=== PATIENT | male | born 1965 | race Caucasian/White ===

== ENCOUNTER 2019-09-16 18:32 | Emergency (ER) | payer MEDICAID, SELFPAY ==
[2019-09-16 18:35] VITALS: BP 165/87; PULSE 109; PULSE 110; RESP 20; RESP 22; TEMP 36.8; O2SAT 91; O2SAT 92; BMI 25.2
--- NOTE | 2019-09-16 18:54 | ED.VISSUMM ---
- ER Visit Summary Date of Service: 09/16/19 Chief Complaint: Cough and shortness of breath History of Present Illness: The patient is a [address] Parkinson's disease prior TIA and hypertension. Patient states his had a recent URI. She was treated with steroids and inhalers. He is now developed the same cough with yellowish to green sputum. No hemoptysis. His chest discomfort is with coughing only. He is never had a DVT or PE. No recent travel, surgery or immobilization. No leg pain or swelling. States that he often gets bronchitis almost annually. Physical Examination: Middle-aged male vital signs are stable is afebrile with pulse ox 90% room air no hypoxia. He is actively wheezing. H EENT exam unremarkable. Smell of tobacco. Neck nontender no lymphadenopathy. Lungs prolonged expiratory phase. Wet cough. Expiratory wheezing bilaterally. No rales or rhonchi. Heart regular rhythm rate about 105 no murmur. Chest wall nontender. Abdomen soft nontender. Normal bowel sounds no peritoneal signs. Patient moving all 4 extremities. Neurovascular intact. Calves are nontender without edema or cords. Neurologically is awake alert with no focal motor deficits. Test Results: Chest x-ray 2 views AP and lateral read by myself shows chronic changes no obvious pneumonia. Emergency Department Course and Treatment: Patient is examined history consistent with a bronchitis rule out pneumonia. Treated with albuterol DuoNeb aerosols. Prednisone p.o. Repeat exam patient is doing better. He will be started on Zithromax Z-CHRISTOPHER for possible bacterial infection. Prednisone 40 g a day for 1 week. Use inhaler. Encouraged to stop smoking. Treatment Plan: Daily for 1 week. Zithromax Z-CHRISTOPHER. Smoking sensation. Disposition: Discharge Impression: Acute bronchitis with bronchospasm Tobacco abuse This note was generated with [employer] dictation software. It may contain incorrect words, spelling, and punctuation that were not noted in review of the chart prior to signing ED Disposition - Plan for ED Patient: Referrals: Silvio Vargas MD [NON-STAFF] -
[2019-09-16 19:16] VITALS: PULSE 105; RESP 22; O2SAT 91
[2019-09-16] MEDS: Albuterol 2.5 MG/3 ML VIAL.NEB. INHALATION (19:16)
[2019-09-16] MEDS: Ipratropium/Albuterol Sulfate 3 ML AMPUL.NEB INHALATION (19:16)
[2019-09-16] MEDS: predniSONE 20 MG Tablet 80 MG PO (19:20)
--- NOTE | 2019-09-16 19:42 | RAD_ITS ---
STUDY: X-RAY CHEST REASON FOR EXAM: Male, 54 years old. Cough TECHNIQUE: PA and lateral views of the chest. COMPARISON: None. FINDINGS: There are vague infiltrates of the right upper and lower lobes. There is no demonstrated pleural abnormality. Normal size heart. Normal mediastinum and raheel. Normal visualized pulmonary arteries. Normal visualized aortic arch and descending thoracic aorta. There are diffuse degenerative changes of the visualized thoracic spine. Normal visualized ribs, clavicles, and shoulders. There is no demonstrated abnormality of the visualized soft tissue structures of the upper abdomen. RAD/Chest PA and Lateral IMPRESSION: Vague infiltrates of the right upper and lower lobes. Degenerative changes of the thoracic spine. Electronically Signed: Joss Hernandez MD at 20:03 EST , Service support ,
--- NOTE | 2019-09-16 19:48 | CPS ---
x1 Albuterol given to pt. in ER as well
[2019-09-16 19:58] VITALS: BP 136/82; PULSE 102; RESP 18; O2SAT 93
[2019-09-16 20:05] VITALS: PULSE 106; RESP 16; O2SAT 92
--- NOTE | 2019-09-16 20:06 | ED.DEP ---
ED Disposition - Plan for ED Patient: Instructions: BRONCHITIS, Antiobiotic Treatment (Adult) Prescriptions: Prednisone [Deltasone] 40 mg PO DAILY 7 Days tab Prescription Printed Albuterol Sulfate [Proventil Hfa] 6.7 gm IH Q2H PRN PRN #1 [email or web address] PRN Reason: Wheezing Prescription Printed Azithromycin [Zithromax] 250 mg PO DAILY 4 Days #4 tab Prescription Printed Referrals: Joao Perry MD [Primary Care Provider] - 3-5 Days if not improving Additional Instructions: Inhaler as needed. Prednisone daily for 7 days. Zithromax daily 1 pill/day for 4 more days. Stop smoking. Follow-up if not improving. Return if worse.
[2019-09-16] MEDS: Azithromycin 250 MG Tablet 500 MG PO (20:28)
== END 2019-09-16 20:30 | disposition home or self-care (01) ==
PROVIDERS: Emergency Provider Emergency Medicine; Family Provider Family Medicine; PCP Family Medicine
DX: J20.9 Acute bronchitis, unspecified (principal); G20 Parkinson's disease; I10 Essential (primary) hypertension; Z86.73 Personal history of transient ischemic attack (TIA), and cerebral infarction without residual deficits; Z72.0 Tobacco use; Z79.82 Long term (current) use of aspirin; Z79.52 Long term (current) use of systemic steroids; Z79.899 Other long term (current) drug therapy
CPT/HCPCS: 71046; 94640; 99251; 99283; G0463

== ENCOUNTER 2019-10-10 16:09 | Inpatient (IN) | payer MEDICAID, SELFPAY ==
[2019-10-10] VITALS (12 sets, daily range): BP systolic 120–148; BP diastolic 75–92; PULSE 101–120; RESP 18–34; TEMP 36.7–37.2; O2SAT 90–95; BMI 24.3; BMI 24.6
--- NOTE | 2019-10-10 16:35 | ED.DCSUM_ITS ---
History of Present Illness Chief Complaint: Shortness of Breath Informant: Patient Onset: Days Context: Gradual Onset Timing: Continuous Associated Symptoms: Chills, Cough, Fever, White sputum, Yellow sputum Chest Pain: None Narrative: Patient is a 54-year-old male with history of hypertension some Parkinson's disease presenting with fever, cough and myalgias. Patient states he was seen for similar symptom about 3 weeks ago. At that time he was put on Z-Shawn, prednisone and albuterol inhaler. He had a chest x-ray which was normal at that time. He notes he felt better for couple days and then started to worsen again. Patient states over the past 2 days he has had significantly worsening symptoms including nausea, vomiting, diarrhea, productive cough, shortness of breath and fever up to 102 degrees Fahrenheit. Patient states he is only smoked 1 cigarette over the past 4 days because he has been feeling unwell. He does report a fall couple days ago but states that is normal for him because of his Parkinson's. He denies any other complaints at this time. He denies any associated swelling of his legs. Past Medical History - Allergies and Home Meds Allergies/Adverse Reactions: Allergies SSRI Adverse Reaction (Uncoded 10/10/19 16:10) Other MAKES ME WANT TO KILL PEOPLE Primary Care Physician: Joao Perry MD [Primary Care Provider] - Past Medical History: - - Parkinson's disease, hypertension Surgical History: noncontributory Lives: Spouse/ Significant Other Smoking Status: Current every day smoker - Family History Maternal Family History: Reports: No pertinent history Paternal Family History: Reports: No pertinent history Review of Systems General: Reports: Chills, Fever, Malaise. Denies: Sweats Eyes: Denies: Visual changes - bilaterally, Blurred Vision - bilaterally ENT: Denies: Bilateral ear pain, Rhinorrhea, Sore throat Cardiovascular: Denies: Chest pain, Palpitations Respiratory: Reports: Dyspnea, Cough, Sputum. Denies: Dyspnea on exertion Gastrointestinal: Reports: Nausea, Vomiting, Diarrhea. Denies: Abdominal pain, Melena, Hematochezia Genitourinary: Denies: Dysuria, Hematuria, Frequency Musculoskeletal: Reports: Myalgias. Denies: Arthralgias, Neck pain, Back pain, Swelling, Extremity Pain Skin: Denies: Rash Neurological: Denies: Headache, Weakness, Numbness Physical Exam Vital Signs/Narrative: Vital Signs Temp Pulse Resp BP Pulse Ox 10/10/19 16:11 98.2 F 113 H 20 H 133/77 H 90 Inital Vital Signs reviewed: Yes General: Well nourished, Well developed Head: Normocephalic, Atraumatic Eyes: Perrl, EOMI ENT: TM's clear. Negative for: Rhinorrhea, Purulent Discharge, Sinus tenderness Neck: Supple, Nontender, No lymphadenopathy, No JVD Cardiovascular: Regular rhythm, No murmurs, Tachycardia Respiratory: Wheezing. Negative for: Diminished, Decreased Air Movement, Retractions Abdomen: Soft, Nontender, Nondistended, Normal bowel sounds Back: Nontender, Normal Inspection Extremities: Nontender, No edema Skin: Normal color, No rash, - - Healing ecchymosis of the right upper back/lower neck. Patient states this is from a recent fall Neurological: Alert, Oriented x3, Cranial nerves II-XII grossly intact, Normal Strength, Normal Sensation Psychological: Normal affect Diagnostic/Tx/Re-eval Chest X-Ray - ED: 2 View, Read by ED Physician, Read by Radiologist, Right Infiltrate Clinical Impression(s) from Imaging Studies Chest X-Ray 10/10/19 17:09 IMPRESSION: 1. Developing right lower lobe pneumonia. Electronically Signed: Tesfaye Hsu MD ([place]) at 17:22 EST , Service support , Laboratory Data 10/10/19 10/10/19 16:45 16:45 WBC 9.4 RBC 4.61 Hgb 15.3 Hct 42.7 MCV 92.6 MCH 33.2 H MCHC 35.8 RDW Std Deviation 42.5 RDW Coeff of Michelet 12.5 Plt Count 146 L MPV 9.0 Immature Gran % (Auto) 0.300 Neut % (Auto) 62.3 Lymph % (Auto) 20.1 Dauphin % (Auto) 14.8 H Eos % (Auto) 2.1 Baso % (Auto) 0.4 Absolute Neuts (auto) 5.9 Absolute Lymphs (auto) 1.90 Nucleated RBC % 0 Sodium 124 L Potassium 3.6 Chloride 88 L Carbon Dioxide 24.0 Anion Gap 12 BUN 6 L Creatinine 0.60 L Estim Creat Clear Calc 129.96 Est GFR (MDRD) Af Amer 182 Est GFR (MDRD) Non-Af 151 BUN/Creatinine Ratio 10.0 Glucose 95 Calcium 9.0 Total Bilirubin 1.20 H AST 46 H ALT 45 Alkaline Phosphatase 117 Total Protein 7.9 Albumin 3.4 Globulin 4.5 H Albumin/Globulin Ratio 0.8 L Lipase 76 Treatments: Albuterol, Atrovent, Ceftriazone Azithromycin Fluid Bolus: NS 1000ml - Medical Decision Making Evaluate for fever, cough and shortness of breath. He appears that he does not feel well but he looks nontoxic. Patient is tachycardic and tachypneic on arrival. Chest x-ray shows a right lower lobe infiltrate. This fits his clinical picture. In addition his BMP shows hyponatremia and hypochloremia. I suspect this is more than likely from dehydration as he states he is unable to eat or drink anything last 2 days and had vomiting. Differential does also include Legionella pneumonia. Patient is not requiring any supplemental oxygen however. He is given breathing treatment in the emergency room. Patient does meet criteria for sepsis with a source of infection as well as tachycardia and tachypnea. Lactate and blood cultures are added on. He will be admitted for IV fluids and antibiotics. He is also given Solu-Medrol in the ER for his wheezing. First dose of Rocephin and azithromycin are given in the emergency room. Discussed with Dr. Green, medicine on-call who is agreeable with this plan. Patient is stable for the general medical floor at time of disposition. He is agreeable with this plan. ED Disposition - Plan for ED Patient: Disposition: Acute Care Hospital [facility] Diagnosis: Right lower lobe pneumonia, Sepsis, Hyponatremia, Hypochloremia Referrals: Joao Perry MD [Primary Care Provider] -
[2019-10-10] MEDS: 0.9% Normal Saline 1,000 ML 1000 ML IV (16:53)
[2019-10-10 16:56] LABS: Absolute Neutrophil Count 5.9 X10^3/uL (2.0-7.7); Basophil# 0.04 X10^3/uL; Basophil% 0.4 % (0-1); Eosinophils% 2.1 % (0-5); Hematocrit 42.7 % (40-54); Hemoglobin 15.3 g/dL (13.0-16.5); Lymphocyte % 20.1 % (19-41); Mean Corp Hgb Conc 35.8 g/dL (32-36); Mean Corpuscular Hgb 33.2 pg (27.0-32.0); Mean Corpuscular Volume 92.6 fL (80-94); Monocyte% 14.8 % (0-10); NRBC Flagged by Analyzer 0 % (0-5); Neutrophil # 5.86 X10^3/uL (2.7-7.7); Neutrophil % 62.3 % (47-70); Platelet Count 146 K/mm3 (150-450); RBC Distribution Width CV 12.5 % (11.6-14.6); RBC Distribution Width SD 42.5 fl (35.1-43.9); Red Blood Count 4.61 M/mm3 (4.6-6.2); White Blood Count 9.4 K/mm3 (4.4-11.0)
[2019-10-10] MEDS: Albuterol 2.5 MG/3 ML VIAL.NEB. INHALATION (16:57)
[2019-10-10] MEDS: Ipratropium/Albuterol Sulfate 3 ML AMPUL.NEB INHALATION ×2 (16:57→22:40)
--- NOTE | 2019-10-10 17:09 | RAD_ITS ---
STUDY: X-RAY CHEST REASON FOR EXAM: Male, 54 years old. COUGH SOB TECHNIQUE: PA and lateral views of the chest. COMPARISON: 09/16/2019 FINDINGS: Localized parenchymal opacity in the left lower lobe is new since the prior study. There is no demonstrated pleural abnormality. Normal size heart. Normal mediastinum and raheel. Normal visualized pulmonary arteries. Normal visualized aortic arch and descending thoracic aorta. There are diffuse degenerative changes of the visualized thoracic spine. Normal visualized ribs, clavicles, and shoulders. There is no demonstrated abnormality of the visualized soft tissue structures of the upper abdomen. RAD/Chest PA and Lateral IMPRESSION: 1. Developing right lower lobe pneumonia. Electronically Signed: Tesfaye Hsu MD ([place]) at 17:22 EST , Service support ,
[2019-10-10 17:12] LABS: ALB/GLOB Ratio 0.8 RATIO (0.9-2.4); AST(SGOT) 46 U/L (15-37); Alanine Aminotransfer ALT/SGPT 45 U/L (16-61); Albumin, Serum 3.4 g/dL (3.2-5.0); Alkaline Phosphatase 117 U/L (45-117); Anion Gap 12 (5-15); BUN 6 mg/dL (7-18); Chloride 88 mmol/L (98-107); EST Glomerular Filtration Rate 151 mL/min (>60); Est Glom Filt Rate - Afr Amer 182 mL/min (>60); Estimated Creatinine Clearance 129.96 ml/min; Globulin 4.5 g/dL (2.2-4.2); Glucose 95 mg/dL (74-106); Lipase 76 U/L (73-393); Potassium 3.6 mmol/L (3.5-5.1); Protein, Total 7.9 g/dL (6.4-8.2); Sodium Level 124 mmol/L (136-145)
--- NOTE | 2019-10-10 17:49 | PCM.HP.STD ---
Problem List (1) Sepsis Status: Acute Qualifiers: Sepsis type: sepsis due to unspecified organism Sepsis acute organ dysfunction status: unspecified Qualified Code(s): A41.9 - Sepsis, unspecified organism (2) Pneumonia Status: Acute Qualifiers: Pneumonia type: due to unspecified organism Laterality: right Lung location: lower lobe of lung Qualified Code(s): J18.9 - Pneumonia, unspecified organism (3) Viral syndrome Status: Acute (4) Hyponatremia Status: Acute (5) Reactive airway disease Status: Acute Qualifiers: Asthma severity: unspecified severity Asthma persistence: unspecified Asthma complication type: with acute exacerbation Qualified Code(s): J45.901 - Unspecified asthma with (acute) exacerbation (6) Parkinsons disease Status: Chronic (7) History of TIA (transient ischemic attack) Status: Chronic (8) HTN (hypertension) Status: Chronic Qualifiers: Hypertension type: essential hypertension Qualified Code(s): I10 - Essential (primary) hypertension (9) Tobacco use Status: Chronic (10) ETOH abuse Status: Chronic History of Present Illness Date of Admission: 10/10/19 Chief Complaint: Dyspnea, cough, N/V/D The patient is a 54 y/o M w/ PMHx: EtOH Abuse, Parkinson's Disease, Hx TIA, HTN, Tobacco use, recently evated 09/16/19 in the ED w/ history of upper respiratory infection treated with steroids and inhalers with recurrent productive cough and pleuritic chest discomfort primarily only with coughing with at that time suspected acute bronchitis with bronchospasms with Z-Shawn treatment who now represents to the [facility] ED on 10/10/19 with history of initially improving after recent treatment but then had recurrent productive cough, dyspnea, wheezing x 1.5 weeks with 2-3 onset nausea, emesis, loose stools (>4/5 episodes daily) as well as poor appetite with fever up to 102 and chills. He also admitted audible wheezing. Work-up in the ED included T 98.2, heart rate 113, BP 133/77, respiratory rate 20, 90% on room air, CBC with WC 9.4, hemoglobin 15.3, platelet 146 with no evidence of left shift with increased monocytes, CMP with sodium 124, chloride 88, BUN/creatinine 6/0.60, total bilirubin 1.20, AST/ALT 46/45, lipase 76, rapid influenza negative, chest x-ray with developing right lower lobe pneumonia, blood culture x2 pending per ED physician, lactic acid requested per ED physician pending upon requested evaluation of patient. In the ED patient administered albuterol, DuoNeb, azithromycin and rocephin as well as normal saline. Past Medical History Past Medical History (Chronic Problems): Chronic Problems Parkinsons disease (Chronic) History of TIA (transient ischemic attack) (Chronic) HTN (hypertension) (Chronic) Tobacco use (Chronic) ETOH abuse (Chronic) Allergies SSRI Adverse Reaction (Uncoded 10/10/19 16:10) Other MAKES ME WANT TO KILL PEOPLE Home Medications: Ambulatory Orders Medication Instructions Recorded Carbidopa/Levodopa 50/200 [Sinemet 1 tablet PO TIDAC 11/24/16 CR 50/200] Rasagiline Mesylate [Azilect] 1 mg PO DAILY 11/24/16 Amlodipine [Norvasc] 5 mg PO DAILY #30 tablet 11/25/16 Aspirin [Aspirin, Baby] 81 mg PO DAILY@0800 #30 tab.chew 11/25/16 Albuterol Sulfate [Proventil Hfa] 6.7 gm IH Q2H PRN PRN #1 [email or web address] 09/16/19 Surgical History: - - Left lower extremity surgery status post trauma, denies hardware. Psychiatric History: No pertinent psych hx Lives: Spouse/ Significant Other Smoking Status: Current every day smoker - Patient smokes 1 pack/day cigarette tobacco since he was a teenager to age 24, quit until he was in his 30s when he resumed but recently with his illness he has smoked less. Tobacco Use: Cigarettes Alcohol: Heavy - Patient admits to at least a sixpack of beer, 12 ounces each daily usually in the evenings. Drugs: None - *Family History Maternal History Items: Hypertension Paternal History Items: Hypertension Review of Systems Constitutional: Reports: Anorexia, Chills, Fever, Malaise, Weakness, Fatigue. Denies: Weight Change HEENT: Reports: Nasal Congestion, Sinus Congestion, Sinus Drainage. Denies: Head Aches Cardiovascular: Denies: Chest Pain, Palpitations Respiratory: Reports: Cough, Pleuritic Pain, Shortness of Breath, Shortness of breath at rest, Shortness of breath upon exertion, Sputum production, Wheezing Gastrointestinal: Reports: Abdominal Pain - Cramping, dull ache., Diarrhea, Nausea, Vomiting Genitourinary: Denies: Dysuria Musculoskeletal: Reports: Joint Pain, Muscle pain. Denies: Joint Tenderness Skin: Denies: Rash, Wounds Neurological: Reports: Balance problems. Denies: Focal weakness, Numbness, Tingling Psychiatric: Denies: Anxiety, Depression, Homicidal Ideations, Suicidal Ideations Hematologic/ Lymphatic: Denies: Easy Bruising, Easy Bleeding VTE Information - Inpt Only VTE Present on Admission: No VTE Mechan Device Prophylaxis: SCD's VTE Pharm Prophylaxis ordered?: Yes Patient Problems: Active and Suspected Problems Sepsis (Acute) Pneumonia (Acute) Viral syndrome (Acute) Hyponatremia (Acute) Reactive airway disease (Acute) Subjective: Seated upright in ED bed, fatigued appearance, ill-appearing, increased work of breathing and accessory muscle usage. Objective: Physical Examination: General: awake, alert, oriented x 3 and cooperative, seated upright in the ED bed, fatigued and ill-appearing, evident respiratory distress. Skin: normal color, turgor, no icterus, cyanosis. HEENT: AT/NC, EOMI, PERRLA, dry MM, posterior OP erythema, no exudate, no carotid bruits or JVD noted. Lungs: Severely diffusely diminished, greater bilateral bases, diffuse anterior and expiratory wheezing, more diminished posteriorly, rhonchorous, increased work of breathing, accessory muscle usage, evident distress, requesting ABG. Heart: Tachycardic with regular rhythm; no gallop, rub audible. Abdomen: soft, NTTP, ND, normal BS, positive HM. Extremities: no cyanosis, clubbing, or edema. Neurological: patient awake, alert, oriented x 3; cognitive function intact; pupils equally reactive to light and accomodation; cranial nerves II-XII grossly normal, moving all 4 extremities, no focal deficits, strength severely global decrease secondary to acute presentation. Psychiatric: affect appears fatigued, ill, no acute evidence of depressive or anxiety feelings. - Physical Exam Vitals/I&O's: Vital Signs Temp Pulse Resp BP Pulse Ox 98.2 F 112 H 24 H 133/77 H 94 10/10/19 16:11 10/10/19 16:50 10/10/19 16:50 10/10/19 16:11 10/10/19 16:50 Oxygen Delivery Method Room Air Weight: 151 lb 0.266 oz Body Mass Index (BMI) 24.3 Finger Stick Blood Glucose 92 Microbiology Past 72 Hours 10/10/19 16:55 Mucosa - Nasopharyngeal Influenza Types A,B Direct FA (FELIPE) - Final Laboratory Results 10/10/19 16:45: WBC 9.4, RBC 4.61, Hgb 15.3, Hct 42.7, MCV 92.6, MCH 33.2 H, MCHC 35.8, RDW Std Deviation 42.5, RDW Coeff of Michelet 12.5, Plt Count 146 L, MPV 9.0, Immature Gran % (Auto) 0.300, Neut % (Auto) 62.3, Lymph % (Auto) 20.1, Pitkin % (Auto) 14.8 H, Eos % (Auto) 2.1, Baso % (Auto) 0.4, Absolute Neuts (auto) 5.9, Absolute Lymphs (auto) 1.90, Nucleated RBC % 0 10/10/19 16:45: Sodium 124 L, Potassium 3.6, Chloride 88 L, Carbon Dioxide 24.0, Anion Gap 12, BUN 6 L, Creatinine 0.60 L, Estim Creat Clear Calc 129.96, Est GFR (MDRD) Af Amer 182, Est GFR (MDRD) Non-Af 151, BUN/Creatinine Ratio 10.0, Glucose 95, Calcium 9.0, Total Bilirubin 1.20 H, AST 46 H, ALT 45, Alkaline Phosphatase 117, Total Protein 7.9, Albumin 3.4, Globulin 4.5 H, Albumin/Globulin Ratio 0.8 L, Lipase 76 Assessment/Plan All Active Problems Sepsis (Acute) Pneumonia (Acute) Viral syndrome (Acute) Hyponatremia (Acute) Reactive airway disease (Acute) The patient is a 54 y/o M w/ PMHx: EtOH Abuse, Parkinson's Disease, Hx TIA, HTN, Tobacco use, recently evated 09/16/19 in the ED w/ history of upper respiratory infection treated with steroids and inhalers with recurrent productive cough and pleuritic chest discomfort primarily only with coughing with at that time suspected acute bronchitis with bronchospasms with Z-Shawn treatment who now represents to the [facility] ED on 10/10/19 with history of initially improving after recent treatment but then had recurrent productive cough, dyspnea, wheezing x 1.5 weeks with 2-3 onset nausea, emesis, loose stools (>4/5 episodes daily) as well as poor appetite with fever up to 102 and chills. 1. Acute Hypoxic Respiratory Failure secondary to Acute Sepsis secondary to Acute on Possible COPD Exacerbation (Prolonged Tobacc use) versus Reactive Airway and Community Acquired Pneumonia w/ N/V/D: Work-up in the ED included T 98.2, heart rate 113, BP 133/77, respiratory rate 20, 90% on room air, CBC with WC 9.4, hemoglobin 15.3, platelet 146 with no evidence of left shift with increased monocytes, CMP with sodium 124, chloride 88, BUN/creatinine 6/0.60, total bilirubin 1.20, AST/ALT 46/45, lipase 76, rapid influenza negative, chest x-ray with developing right lower lobe pneumonia. Given severity of appearance with increased RR, accessory muscle usage in the ED requested ABG and BiPAP usage if needed. Will admit to PCU given current appearance, awaiting ABG as noted, maintain on oxygen with wean as tolerated to room air, continue ATC duonebs, PRN albuterol, maintain on solumedrol, maintain on IV Rocephin and Azithromycin, HOB, IS parameters w/ pending sputum cultures, respiratory viral panel and urine antigens. 2. N/V/D, ? Related to #1 w/ Acute concurrent Viral Syndrome versus concurrent Gastroenteritis: Will continue hydration, will obtain stool cx as well as c-diff given recent abx therapy w/ repeat AM CBC. Anti-emetics, pain regimen PRN. 3. Acute hyponatremia, hypovolemic: Admission sodium 124, prior baseline appears 130s, will continue to hydrate, repeat BMP in a.m. 4. Parkinson's disease: We will continue patient home Sinemet, azilect. Will maintain on fall precautions, physical therapy, occupational therapy and case management consultation. 5. Hx TIA: We will continue aspirin, BP regimen, not on statin therapy, defer to outpatient. 6. Tobacco Abuse: Encouraged cessation, inpatient consultation per RT, NR if desired. 7. EtOH Abuse: Patient notes routine consumption of at least a sixpack of beer, 12 ounce per day. Will maintain on CIWA protocol, MVI, thiamine and folic acid. Case management consulted. Will obtain magnesium and phosphorus levels. Last intake was the evening prior. 8. DVT prophylaxis: SCDs, Lovenox. Code Visit Inpatient E&M: 47116 Init Hosp L3
--- NOTE | 2019-10-10 18:01 | NURSING ---
MED SURG WHITE PNEUMONIA, HYPONATREMIA, DEHYDRATION
[2019-10-10] MEDS: MethylPREDNISolone 125 MG/2 ML Vial IV (18:19)
[2019-10-10] MEDS: Ceftriaxone 1 GM/50 ML BAG IV (18:19)
[2019-10-10 18:48] LABS: Lactic Acid 1.7 mmol/L (0.4-1.9)
--- NOTE | 2019-10-10 19:23 | CPS ---
Critical ABG value read to Dr. Hopper. PcO2 18.2
[2019-10-10 19:30] LABS: Allen Test POS; Base Excess -4 mmol/L (-2 to +2); Bicarbonate 17.3 mmol/L (22-26); Blood Gas Specimen Type ART; O2 Delivery Device Nasal Can; PO2 62 mmHG (75-100); SITE R Radial; SO2 95 % (95-99); Time Given 1915; Total Carbon Dioxide 18 mmol/L; pCO2 18.2 mmHg (35-45); pH 7.59 (7.35-7.45)
[2019-10-10 20:36] LABS: Phosphorus 2.6 mg/dL (2.5-4.9)
[2019-10-10] MEDS: 0.9% Normal Saline 1,000 ML 125 ML IV (20:41)
[2019-10-10 21:14] LABS: Alcohol, Blood (Medical)-Serum < 3.0 mg/dL
[2019-10-10 22:10] LABS: Amphetamine Urine VISTA NEGATIVE (<1000 ng/mL); Barbiturate Urine VISTA NEGATIVE (< 200 ng/mL); Benzodiazepine Urine VISTA NEGATIVE (< 200 ng/mL); Cocaine Urine VISTA NEGATIVE (< 300 ng/mL); Ecstacy Urine VISTA NEGATIVE (< 500 ng/mL); Methadone Urine VISTA NEGATIVE (< 300 ng/mL); PCP Urine VISTA NEGATIVE (< 25 ng/mL); THC Urine VISTA NEGATIVE (< 50 ng/mL); Vista UDS pH Range 6
[2019-10-10] MEDS: CARBIDOPA/LEVODOPA CR 50/200 Tablet PO (23:20)
[2019-10-11] VITALS (16 sets, daily range): BP systolic 116–144; BP diastolic 73–86; PULSE 88–109; RESP 16–20; TEMP 36.6–36.9; O2SAT 93–97
[2019-10-11] MEDS: 0.9% Normal Saline 1,000 ML 125 ML IV ×3 (05:53→19:45)
[2019-10-11] MEDS: CARBIDOPA/LEVODOPA CR 50/200 Tablet PO ×3 (05:53→21:55)
[2019-10-11 07:00] LABS: Absolute Lymphocyte Count 0.56 X10^3/uL (0.83-4.51); Absolute Neutrophil Count 4.7 X10^3/uL (2.0-7.7); Basophil# 0.01 X10^3/uL; Basophil% 0.2 % (0-1); Hemoglobin 14.7 g/dL (13.0-16.5); Lymphocyte # 0.56 X10^3/ul (4.0); Mean Corpuscular Hgb 32.7 pg (27.0-32.0); Mean Corpuscular Volume 93.5 fL (80-94); Mean Platelet Vol. 9.3 fl (6.2-12.0); Monocyte% 5.3 % (0-10); NRBC Flagged by Analyzer 0 % (0-5); Neutrophil # 4.69 X10^3/uL (2.7-7.7); Neutrophil % 83.4 % (47-70); POSITIVE DIFFERENTIAL YES; POSITIVE MORPHOLOGY YES; Platelet Count 150 K/mm3 (150-450); RBC Distribution Width CV 12.5 % (11.6-14.6); RBC Distribution Width SD 42.7 fl (35.1-43.9); Red Blood Count 4.49 M/mm3 (4.6-6.2); White Blood Count 5.6 K/mm3 (4.4-11.0)
[2019-10-11 07:07] LABS: Differential Indicated SCAN CRITERIA MET
[2019-10-11 07:34] LABS: Anion Gap 7 (5-15); BUN 4 mg/dL (7-18); BUN/Creat Ratio 7.9 RATIO (10-20); Calcium,Total 8.2 mg/dL (8.5-10.1); Chloride 99 mmol/L (98-107); EST Glomerular Filtration Rate 184 mL/min (>60); Est Glom Filt Rate - Afr Amer 222 mL/min (>60); Estimated Creatinine Clearance 155.96 ml/min; Glucose 198 mg/dL (74-106); Potassium 3.5 mmol/L (3.5-5.1); Sodium Level 131 mmol/L (136-145)
--- NOTE | 2019-10-11 07:39 | NURSING ---
discussed Azilect medication order with pharmacy and it is a non formulary item. Pharmacy stated they will send the form for the pt to bring in own med if possible.
[2019-10-11] MEDS: Ipratropium/Albuterol Sulfate 3 ML AMPUL.NEB INHALATION ×4 (07:51→19:29)
[2019-10-11] MEDS: Thiamine Hydrochloride 100 MG Tablet PO ×2 (08:15→16:23)
[2019-10-11] MEDS: Folic Acid 1 MG Tablet PO (08:15)
[2019-10-11] MEDS: Aspirin 81 MG TAB.CHEW PO (08:15)
[2019-10-11] MEDS: amLODIPine 5 MG Tablet PO (08:15)
[2019-10-11] MEDS: Multivitamins,Ther W-Minerals Tablet 1 TABLET PO (08:15)
[2019-10-11] MEDS: Enoxaparin 40 MG/0.4 ML Syringe SC (08:16)
--- NOTE | 2019-10-11 09:22 | PCM.PN.HOSP ---
Patient Problems: Active and Suspected Problems Sepsis (Acute) Pneumonia (Acute) Viral syndrome (Acute) Hyponatremia (Acute) Reactive airway disease (Acute) Right lower lobe pneumonia (Acute) Sepsis (Acute) Hyponatremia (Acute) Hypochloremia (Acute) Reason for Visit: Follow-up RSV bronchitis with superimposed pneumonia, hyponatremia Subjective: Patient is a 54-year-old gentleman admitted with shortness of breath cough and fever. Chest x-ray obtained on admission was consistent with developing pneumonia involving the right lower lobe. An assessment of acute hypoxic respiratory failure as well as sepsis secondary to pneumonia made admitted to monitored bed for further management. Patient was also found to be hyponatremic on admission. Subsequent acute respiratory viral panel sent came back positive for RSV Objective: GENERAL: cooperative appears ill looking HEENT: Atraumatic; EYES; Anicteric, Normal Conjunctiva NECK; supple, normal thyroid, RESPIRATORY: Diminished to auscultation CARDIOVASCULAR: Regular S1 S2, GI: soft, normoactive bowel sounds, : No Renal angle tenderness; EXTREMITIES: No edema, no clubbing, MUSCULOSKELETAL: no muscle waisting NEURO: Awake; no lateralizing signs. SKIN: No Rash PSYCH; Flat affect Vitals/I&O's: Vital Signs Temp Pulse Resp BP Pulse Ox 98 F 90 18 118/73 93 10/11/19 08:13 10/11/19 08:13 10/11/19 08:13 10/11/19 08:13 10/11/19 08:13 Oxygen Flow Rate (L/min) 2 Oxygen Delivery Method Nasal Cannula Weight: 69.218 kg Body Mass Index (BMI) 24.6 Finger Stick Blood Glucose 92 Intake and Output for Last 24 Hours 10/09/19 10/10/19 10/11/19 23:59 23:59 23:59 Intake Total 1796.5 / 1796.5 1600.00 / 1600.00 Output Total 650 / 650 1550 / 1550 Balance 1146.5 / 1146.5 50.00 / 50.00 Microbiology Past 72 Hours 10/10/19 21:22 Mucosa - Nose Respiratory Panel (PCR) - Final RSV A 10/10/19 21:30 Urine, Clean Catch Legionella Antigen - Final 10/10/19 21:30 Urine, Clean Catch Streptococcus pneumoniae Antigen (M - Final 10/10/19 16:55 Mucosa - Nasopharyngeal Influenza Types A,B Direct FA (FELIPE) - Final Laboratory Results 10/10/19 16:45: WBC 9.4, RBC 4.61, Hgb 15.3, Hct 42.7, MCV 92.6, MCH 33.2 H, MCHC 35.8, RDW Std Deviation 42.5, RDW Coeff of Michelet 12.5, Plt Count 146 L, MPV 9.0, Immature Gran % (Auto) 0.300, Neut % (Auto) 62.3, Lymph % (Auto) 20.1, [place] % (Auto) 14.8 H, Eos % (Auto) 2.1, Baso % (Auto) 0.4, Absolute Neuts (auto) 5.9, Absolute Lymphs (auto) 1.90, Nucleated RBC % 0 10/10/19 16:45: Sodium 124 L, Potassium 3.6, Chloride 88 L, Carbon Dioxide 24.0, Anion Gap 12, BUN 6 L, Creatinine 0.60 L, Estim Creat Clear Calc 129.96, Est GFR (MDRD) Af Amer 182, Est GFR (MDRD) Non-Af 151, BUN/Creatinine Ratio 10.0, Glucose 95, Calcium 9.0, Total Bilirubin 1.20 H, AST 46 H, ALT 45, Alkaline Phosphatase 117, Total Protein 7.9, Albumin 3.4, Globulin 4.5 H, Albumin/Globulin Ratio 0.8 L, Lipase 76 10/10/19 16:45: Magnesium 2.0 10/10/19 16:45: Phosphorus 2.6 10/10/19 18:15: Lactic Acid 1.7 10/10/19 19:23: Specimen Type ART, Sample Site R Radial, pH 7.59 H, Bicarbonate Actual 17.3 L, POC Total CO2 18, Base Excess -4 L, O2 Saturation 95, ABG pCO2 18.2 L*, ABG pO2 62 L, Rafael Test POS, O2 Delivery Device Nasal Can, Liter Flow 1.0, Blood Gas Notified Whom KATHERYN العراقي, Blood Gas Notified Time 191410/10/19 20:39: Ethyl Alcohol < 3.0 10/10/19 21:30: Urine Opiates Screen NEGATIVE, Urine Methadone Screen NEGATIVE, Ur Barbiturates Screen NEGATIVE, Ur Phencyclidine Scrn NEGATIVE, Ur Amphetamines Screen NEGATIVE, U Methamphetamin-MDMA NEGATIVE, U Benzodiazepines Scrn NEGATIVE, Urine Cocaine Screen NEGATIVE, U Cannabinoids Screen NEGATIVE, Ur Drug Screen Comment 10/11/19 06:40: WBC 5.6, RBC 4.49 L, Hgb 14.7, Hct 42.0, MCV 93.5, MCH 32.7 H, MCHC 35.0, RDW Std Deviation 42.7, RDW Coeff of Michelet 12.5, Plt Count 150, MPV 9.3, Immature Gran % (Auto) 1.100 H, Neut % (Auto) 83.4 H, Lymph % (Auto) 10.0 L, [place] % (Auto) 5.3, Eos % (Auto) 0.0, Baso % (Auto) 0.2, Absolute Neuts (auto) 4.7, Absolute Lymphs (auto) 0.56 L, Nucleated RBC % 0 10/11/19 06:40: Sodium 131 L, Potassium 3.5, Chloride 99, Carbon Dioxide 25.0, Anion Gap 7, BUN 4 L, Creatinine 0.50 L, Estim Creat Clear Calc 155.96, Est GFR (MDRD) Af Amer 222, Est GFR (MDRD) Non-Af 184, BUN/Creatinine Ratio 7.9 L, Glucose 198 H, Calcium 8.2 L Current Medications Acetaminophen (Tylenol) 650 mg PO Q6H PRN PRN PRN Reason: Non-cardiac pain (4-10/10) Hydrocodone Bitart/Acetaminophen ([place] 5mg-325mg) 1 - 2 tablet PO Q4H PRN PRN PRN Reason: Pain Score 4-10/10 Al Hydroxide/Mg Hydroxide (Mylanta Ii) 15 - 30 ml PO Q4H PRN PRN PRN Reason: INDIGESTION Albuterol Sulfate (Ventolin Aerosols) 2.5 mg INHALATION Q2H PRN PRN PRN Reason: dyspnea, wheezing Albuterol/Ipratropium (Duoneb) 3 ml INHALATION Q4HWA.RT [facility] Last Admin: 10/11/19 07:51 Dose: 3 ml Documented by: Amlodipine Besylate (Norvasc) 5 mg PO DAILY [facility] Last Admin: 10/11/19 08:15 Dose: 5 mg Documented by: Aspirin (Aspirin, Baby) 81 mg PO DAILY@0800 [facility] Last Admin: 10/11/19 08:15 Dose: 81 mg Documented by: Carbidopa/Levodopa (Sinemet Cr) 1 tablet PO TIDAC [facility] Last Admin: 10/11/19 05:53 Dose: 1 tablet Documented by: Enoxaparin Sodium (Lovenox) 40 mg SC DAILY [facility] Last Admin: 10/11/19 08:16 Dose: 40 mg Documented by: Folic Acid (Folic Acid) 1 mg PO DAILY@0800 [facility] Stop: 10/13/19 08:01 Last Admin: 10/11/19 08:15 Dose: 1 mg Documented by: Glucagon () 1 mg IM .X1 PRN PRN Reason: Hypoglycemia Hydralazine HCl (Apresoline Iv) 10 mg IV Q4H PRN PRN PRN Reason: SBP > 160 Sodium Chloride () 1,000 mls @ 125 mls/hr IV .Q8H [facility] Last Admin: 10/11/19 05:53 Dose: 125 mls/hr Documented by: Ceftriaxone Sodium 2 gm/ (Sodium Chloride) 50 mls @ 100 mls/hr IV Q24H [facility] Stop: 10/18/19 22:01 Azithromycin 500 mg/ Dextrose 255 mls @ 250 mls/hr IV Q24H [facility] Stop: 10/16/19 22:01 Sodium Chloride () 250 mls @ 15 mls/hr IV .[id number] PRN PRN Reason: Saline Flush Sodium Chloride () 250 mls @ 15 mls/hr IV .[id number] PRN PRN Reason: Additional IVPB Infusion Dextrose (Dextrose 10%-Water) 250 mls @ 999 mls/hr IV .Q16M PRN; Protocol PRN Reason: HYPOGLYCEMIA Lorazepam (Ativan) 0.5 mg IV Q4H PRN PRN PRN Reason: agitation/anxiety with BIPAP Lorazepam (Ativan) 2 mg PO Q2H PRN PRN; Protocol PRN Reason: CIWA score > 8 but <15 Lorazepam (Ativan) 2 mg PO UD PRN; Protocol PRN Reason: CIWA score >/=15. Lorazepam (Ativan) 2 mg IV Q2H PRN PRN; Protocol PRN Reason: CIWA score > 8 but <15 Lorazepam (Ativan) 2 mg IV UD PRN; Protocol PRN Reason: CIWA score >/=15. Methylprednisolone (Solu-Medrol) 40 mg IV Q8 [facility] Last Admin: 10/11/19 05:53 Dose: 40 mg Documented by: Morphine Sulfate () 1 - 2 mg IV Q4H PRN PRN PRN Reason: Pain Score 1-10/10 Multivitamins/Minerals (Multivitamin With Minerals) [facility] Last Admin: 10/11/19 08:15 Dose: 1 tablet Documented by: Nicotine (Nicoderm Cq (Pbkc)) 21 mg TRANSDERM. DAILY PRN PRN Reason: Nicotine Craving Nitroglycerin (Nitrostat) 0.4 mg SUBLINGUAL Q5M PRN PRN Reason: CARDIAC/CHEST PAIN Ondansetron HCl (Zofran) 4 mg IV Q8H PRN PRN PRN Reason: NAUSEA/VOMITING Rasagiline (Azilect) 1 mg PO DAILY [facility] Sodium Chloride () 10 - 40 ml IV UD PRN PRN Reason: SALINE FLUSH Temazepam (Restoril) 15 mg PO QHS PRN PRN PRN Reason: INSOMNIA Thiamine HCl (Vitamin B1) [facility] Stop: 10/13/19 17:01 Last Admin: 10/11/19 08:15 Dose: 100 mg Documented by: Throat Lozenges (Cepacol Sore Throat Lozenge) 1 lozenge MUCOUS MEM Q2H PRN PRN PRN Reason: Sore throat or cough STROKE Vital Signs/Narrative: Vital Signs Temp Pulse Resp BP Pulse Ox 10/11/19 08:13 98 F 90 18 118/73 93 10/11/19 07:51 106 H 20 H 96 10/11/19 06:49 92 Medical Necessity - Tobacco Use Smoking Status: Current every day smoker Tobacco Use: Cigarettes Assessment/Plan All Active Problems Sepsis (Acute) Pneumonia (Acute) Viral syndrome (Acute) Hyponatremia (Acute) Reactive airway disease (Acute) Right lower lobe pneumonia (Acute) Sepsis (Acute) Hyponatremia (Acute) Hypochloremia (Acute) Patient is a 54-year-old gentleman admitted with shortness of breath cough and fever. Chest x-ray obtained on admission was consistent with developing pneumonia involving the right lower lobe. An assessment of acute hypoxic respiratory failure as well as sepsis secondary to pneumonia made admitted to monitored bed for further management. Patient was also found to be hyponatremic on admission. Subsequent acute respiratory viral panel sent came back positive for RSV 1. Acute hypoxic respiratory failure ~Secondary to RSV bronchitis with superimposed pneumonia management as discussed below 2. Sepsis ~ secondary to RSV bronchitis with superimposed pneumonia management as discussed belowto pneumonia 3. Pneumonia ~RSV viral pneumonia with suspected superimposed active cocci pneumonia. Blood and sputum cultures sent. Patient placed on Rocephin and Zithromax and placed on oxygen titrated to keep also is greater than 90 patient still requires supplemental oxygen 4. Acute respiratory alkalosis ?Patient PH on his ABG was 7.59 with PCO2 of 18.2. Management is by treating the underlying condition that is his RSV bronchitis with superimposed pneumonia 5. Acute hyponatremia ?Hypovolemic hyponatremia managed with IV fluids with subsequent monitoring of electrolyte 6. Parkinson's disease Patient is on Sinemet as well as Rasagiline (Azilect); did continue 7. Previous history of TIA ?Patient currently on aspirin did continue 8. Tobacco dependence ~counseled on cessation, offered nicotine patch for tobacco cravings 9. Neck alcohol abuse With previous withdrawal ; Patient was placed on DT precautions with lorazepam. 10. DVT prophylaxis ?Lovenox Active Medications Acetaminophen (Tylenol) 650 mg PO Q6H PRN PRN PRN Reason: Non-cardiac pain (4-10/10) Hydrocodone Bitart/Acetaminophen ([place] 5mg-325mg) 1 - 2 tablet PO Q4H PRN PRN PRN Reason: Pain Score 4-10/10 Al Hydroxide/Mg Hydroxide (Mylanta Ii) 15 - 30 ml PO Q4H PRN PRN PRN Reason: INDIGESTION Albuterol Sulfate (Ventolin Aerosols) 2.5 mg INHALATION Q2H PRN PRN PRN Reason: dyspnea, wheezing Albuterol/Ipratropium (Duoneb) 3 ml INHALATION Q4HWA.RT [facility] Last Admin: 10/11/19 07:51 Dose: 3 ml Documented by: Amlodipine Besylate (Norvasc) 5 mg PO DAILY [facility] Last Admin: 10/11/19 08:15 Dose: 5 mg Documented by: Aspirin (Aspirin, Baby) 81 mg PO DAILY@0800 [facility] Last Admin: 10/11/19 08:15 Dose: 81 mg Documented by: Carbidopa/Levodopa (Sinemet Cr) 1 tablet PO TIDAC [facility] Last Admin: 10/11/19 05:53 Dose: 1 tablet Documented by: Enoxaparin Sodium (Lovenox) 40 mg SC DAILY [facility] Last Admin: 10/11/19 08:16 Dose: 40 mg Documented by: Folic Acid (Folic Acid) 1 mg PO DAILY@0800 [facility] Stop: 10/13/19 08:01 Last Admin: 10/11/19 08:15 Dose: 1 mg Documented by: Glucagon () 1 mg IM .X1 PRN PRN Reason: Hypoglycemia Hydralazine HCl (Apresoline Iv) 10 mg IV Q4H PRN PRN PRN Reason: SBP > 160 Sodium Chloride () 1,000 mls @ 125 mls/hr IV .Q8H [facility] Last Admin: 10/11/19 05:53 Dose: 125 mls/hr Documented by: Ceftriaxone Sodium 2 gm/ (Sodium Chloride) 50 mls @ 100 mls/hr IV Q24H [facility] Stop: 10/18/19 22:01 Azithromycin 500 mg/ Dextrose 255 mls @ 250 mls/hr IV Q24H [facility] Stop: 10/16/19 22:01 Sodium Chloride () 250 mls @ 15 mls/hr IV .[id number] PRN PRN Reason: Saline Flush Sodium Chloride () 250 mls @ 15 mls/hr IV .[id number] PRN PRN Reason: Additional IVPB Infusion Dextrose (Dextrose 10%-Water) 250 mls @ 999 mls/hr IV .Q16M PRN; Protocol PRN Reason: HYPOGLYCEMIA Lorazepam (Ativan) 0.5 mg IV Q4H PRN PRN PRN Reason: agitation/anxiety with BIPAP Lorazepam (Ativan) 2 mg PO Q2H PRN PRN; Protocol PRN Reason: CIWA score > 8 but <15 Lorazepam (Ativan) 2 mg PO UD PRN; Protocol PRN Reason: CIWA score >/=15. Lorazepam (Ativan) 2 mg IV Q2H PRN PRN; Protocol PRN Reason: CIWA score > 8 but <15 Lorazepam (Ativan) 2 mg IV UD PRN; Protocol PRN Reason: CIWA score >/=15. Methylprednisolone (Solu-Medrol) 40 mg IV Q8 [facility] Last Admin: 10/11/19 05:53 Dose: 40 mg Documented by: Morphine Sulfate () 1 - 2 mg IV Q4H PRN PRN PRN Reason: Pain Score 1-10/10 Multivitamins/Minerals (Multivitamin With Minerals) [facility] Last Admin: 10/11/19 08:15 Dose: 1 tablet Documented by: Nicotine (Nicoderm Cq (Pbkc)) 21 mg TRANSDERM. DAILY PRN PRN Reason: Nicotine Craving Nitroglycerin (Nitrostat) 0.4 mg SUBLINGUAL Q5M PRN PRN Reason: CARDIAC/CHEST PAIN Ondansetron HCl (Zofran) 4 mg IV Q8H PRN PRN PRN Reason: NAUSEA/VOMITING Rasagiline (Azilect) 1 mg PO DAILY [facility] Sodium Chloride () 10 - 40 ml IV UD PRN PRN Reason: SALINE FLUSH Temazepam (Restoril) 15 mg PO QHS PRN PRN PRN Reason: INSOMNIA Thiamine HCl (Vitamin B1) [facility] Stop: 10/13/19 17:01 Last Admin: 10/11/19 08:15 Dose: 100 mg Documented by: Throat Lozenges (Cepacol Sore Throat Lozenge) 1 lozenge MUCOUS MEM Q2H PRN PRN PRN Reason: Sore throat or cough Clinical Impression(s) from Imaging Studies Chest X-Ray 10/10/19 17:09 IMPRESSION: 1. Developing right lower lobe pneumonia. Electronically Signed: Tesfaye Hsu MD (Bro[place]) at 17:22 EST , Service support , Code Visit Inpatient E&M: [id number] [facility] Hosp L3
--- NOTE | 2019-10-11 11:31 | CASEMGMT ---
Assessment- SW completed assessment with patient. Living situation- Patient lives with his significant other in a 2 story home with 1 entry step. PCP: Dr Perry Specialists: Dr Arriaga-Neurology Pharmacy: [facility] in [place] DME: Patient has a walker and grab bars in his bathroom. ADL's/IADL's: Patient is independent in all activities. He does use his walker periodically when he is walking longer distances. Past SNF/rehab: None Past HH: None LW: None POA: None SW asked patient about his alcohol consumption. He said he does this every year around the holidays. He hates the holidays as his ex- left him 10 years ago around that time. He cuts back on his alcohol after which is his ex 's birthday. He has no intentions of quitting and declined need for resources. He does not anticipate any d/c needs. Julia MEJIA MSW
[2019-10-12] VITALS (10 sets, daily range): BP systolic 147–155; BP diastolic 52–93; PULSE 79–100; RESP 17–20; TEMP 36.4–36.8; O2SAT 90–98
[2019-10-12] MEDS: HYDROcodone Bitartrate/Apap 5/325 Tablet PO (01:15)
[2019-10-12] MEDS: 0.9% Normal Saline 1,000 ML 125 ML IV (05:25)
[2019-10-12] MEDS: CARBIDOPA/LEVODOPA CR 50/200 Tablet PO (06:06)
[2019-10-12] MEDS: amLODIPine 5 MG Tablet PO (06:06)
[2019-10-12 06:51] LABS: Absolute Lymphocyte Count 1.04 X10^3/uL (0.83-4.51); Absolute Neutrophil Count 10.9 X10^3/uL (2.0-7.7); Basophil# 0.02 X10^3/uL; Basophil% 0.1 % (0-1); Eosinophil# 0.05 X10^3/uL; Eosinophils% 0.4 % (0-5); Hematocrit 38.8 % (40-54); Hemoglobin 13.4 g/dL (13.0-16.5); Lymphocyte # 1.04 X10^3/ul (4.0); Lymphocyte % 7.7 % (19-41); Mean Corp Hgb Conc 34.5 g/dL (32-36); Mean Corpuscular Hgb 33.3 pg (27.0-32.0); Mean Corpuscular Volume 96.5 fL (80-94); Mean Platelet Vol. 9.4 fl (6.2-12.0); Monocyte# 1.14 X10^3/uL; Monocyte% 8.5 % (0-10); NRBC Flagged by Analyzer 0 % (0-5); Neutrophil # 10.91 X10^3/uL (2.7-7.7); Neutrophil % 81.1 % (47-70); POSITIVE MORPHOLOGY YES; Platelet Count 196 K/mm3 (150-450); RBC Distribution Width CV 12.9 % (11.6-14.6); RBC Distribution Width SD 46.2 fl (35.1-43.9); Red Blood Count 4.02 M/mm3 (4.6-6.2); White Blood Count 13.5 K/mm3 (4.4-11.0)
[2019-10-12 06:57] LABS: Differential Indicated SCAN CRITERIA MET
[2019-10-12 07:15] LABS: Anion Gap 6 (5-15); BUN 4 mg/dL (7-18); BUN/Creat Ratio 10.3 RATIO (10-20); Calcium,Total 8.4 mg/dL (8.5-10.1); Chloride 107 mmol/L (98-107); Creatinine, Serum 0.39 mg/dL (0.70-1.30); EST Glomerular Filtration Rate 247 mL/min (>60); Est Glom Filt Rate - Afr Amer 299 mL/min (>60); Estimated Creatinine Clearance 199.94 ml/min; Glucose 154 mg/dL (74-106); Magnesium 2.3 mg/dL (1.6-2.6); Potassium 3.4 mmol/L (3.5-5.1); Sodium Level 138 mmol/L (136-145)
[2019-10-12] MEDS: Ipratropium/Albuterol Sulfate 3 ML AMPUL.NEB INHALATION ×2 (08:11→11:44)
[2019-10-12] MEDS: 0.9% Saline Lock 10 ML Syringe IV (08:26)
[2019-10-12] MEDS: Ondansetron 4 MG/2 ML Vial IV (08:27)
[2019-10-12] MEDS: Thiamine Hydrochloride 100 MG Tablet PO (10:25)
[2019-10-12] MEDS: Aspirin 81 MG TAB.CHEW PO (10:25)
[2019-10-12] MEDS: Multivitamins,Ther W-Minerals Tablet 1 TABLET PO (10:25)
[2019-10-12] MEDS: Folic Acid 1 MG Tablet PO (10:25)
[2019-10-12] MEDS: Enoxaparin 40 MG/0.4 ML Syringe SC (10:25)
--- NOTE | 2019-10-12 10:45 | PN_ITS ---
Patient Problems: Active and Suspected Problems Sepsis (Acute) Pneumonia (Acute) Viral syndrome (Acute) Hyponatremia (Acute) Reactive airway disease (Acute) Right lower lobe pneumonia (Acute) Sepsis (Acute) Hyponatremia (Acute) Hypochloremia (Acute) Reason for Visit: RSV infection Subjective: Seen still remains on oxygen. Still has a productive cough he did request possible discharge home plan is for patient to undergo 6 minutes walk if he requires oxygen will keep him an additional day if not patient will be discharged. Objective: GENERAL: cooperative HEENT: Atraumatic; EYES; Anicteric, Normal Conjunctiva NECK; supple, normal thyroid, RESPIRATORY: Diminished to auscultation CARDIOVASCULAR: Regular S1 S2, GI: soft, normoactive bowel sounds, : No Renal angle tenderness; EXTREMITIES: No edema, no clubbing, MUSCULOSKELETAL: no muscle waisting NEURO: Awake; no lateralizing signs. SKIN: No Rash PSYCH; Flat affect Vitals/I&O's: Vital Signs Temp Pulse Resp BP Pulse Ox 97.8 F 88 20 H 155/93 H 96 10/12/19 08:00 10/12/19 08:11 10/12/19 08:11 10/12/19 08:00 10/12/19 08:11 Oxygen Flow Rate (L/min) 2 Oxygen Delivery Method Nasal Cannula Weight: 69.218 kg Body Mass Index (BMI) 24.6 Finger Stick Blood Glucose 92 Intake and Output for Last 24 Hours 10/10/19 10/11/19 10/12/19 23:59 23:59 23:59 Intake Total 1796.5 / 1796.5 6610.83 / 6610.83 1277.5 / 1277.5 Output Total 650 / 650 3050 / 3050 1300 / 1300 Balance 1146.5 / 1146.5 3560.83 / 3560.83 -22.5 / -22.5 Microbiology Past 72 Hours 10/11/19 21:05 Stool C. difficile DNA Amplification - Final 10/11/19 10:20 Sputum, Expectorated/Coughed Gram Stain - Final 10/10/19 21:22 Mucosa - Nose Respiratory Panel (PCR) - Final RSV A 10/10/19 21:30 Urine, Clean Catch Legionella Antigen - Final 10/10/19 21:30 Urine, Clean Catch Streptococcus pneumoniae Antigen (M - Final 10/10/19 16:55 Mucosa - Nasopharyngeal Influenza Types A,B Direct FA (FELIPE) - Final Laboratory Results 10/12/19 06:28: WBC 13.5 H, RBC 4.02 L, Hgb 13.4, Hct 38.8 L, MCV 96.5 H, MCH 33.3 H, MCHC 34.5, RDW Std Deviation 46.2 H, RDW Coeff of Michelet 12.9, Plt Count 196, MPV 9.4, Immature Gran % (Auto) 2.200 H, Neut % (Auto) 81.1 H, Lymph % (Auto) 7.7 L, [place] % (Auto) 8.5, Eos % (Auto) 0.4, Baso % (Auto) 0.1, Absolute Neuts (auto) 10.9 H, Absolute Lymphs (auto) 1.04, Nucleated RBC % 0 10/12/19 06:28: Sodium 138, Potassium 3.4 L, Chloride 107, Carbon Dioxide 25.0, Anion Gap 6, BUN 4 L, Creatinine 0.39 L, Estim Creat Clear Calc 199.94, Est GFR (MDRD) Af Amer 299, Est GFR (MDRD) Non-Af 247, BUN/Creatinine Ratio 10.3, Glucose 154 H, Calcium 8.4 L, Magnesium 2.3 Current Medications Acetaminophen (Tylenol) 650 mg PO Q6H PRN PRN PRN Reason: Non-cardiac pain (4-10/10) Hydrocodone Bitart/Acetaminophen ([place] 5mg-325mg) 1 - 2 tablet PO Q4H PRN PRN PRN Reason: Pain Score 4-10/10 Last Admin: 10/12/19 01:15 Dose: 1 tablet Documented by: Al Hydroxide/Mg Hydroxide (Mylanta Ii) 15 - 30 ml PO Q4H PRN PRN PRN Reason: INDIGESTION Albuterol Sulfate (Ventolin Aerosols) 2.5 mg INHALATION Q2H PRN PRN PRN Reason: dyspnea, wheezing Albuterol/Ipratropium (Duoneb) 3 ml INHALATION Q4HWA.RT [facility] Last Admin: 10/12/19 08:11 Dose: 3 ml Documented by: Amlodipine Besylate (Norvasc) 5 mg PO DAILY [facility] Last Admin: 10/12/19 06:06 Dose: 5 mg Documented by: Aspirin (Aspirin, Baby) 81 mg PO DAILY@0800 [facility] Last Admin: 10/12/19 10:25 Dose: 81 mg Documented by: Carbidopa/Levodopa (Sinemet Cr) 1 tablet PO TIDAC [facility] Last Admin: 10/12/19 06:06 Dose: 1 tablet Documented by: Enoxaparin Sodium (Lovenox) 40 mg SC DAILY [facility] Last Admin: 10/12/19 10:25 Dose: 40 mg Documented by: Folic Acid (Folic Acid) 1 mg PO DAILY@0800 [facility] Stop: 10/13/19 08:01 Last Admin: 10/12/19 10:25 Dose: 1 mg Documented by: Glucagon () 1 mg IM .X1 PRN PRN Reason: Hypoglycemia Hydralazine HCl (Apresoline Iv) 10 mg IV Q4H PRN PRN PRN Reason: SBP > 160 Sodium Chloride () 1,000 mls @ 125 mls/hr IV .Q8H [facility] Last Admin: 10/12/19 05:25 Dose: 125 mls/hr Documented by: Ceftriaxone Sodium 2 gm/ (Sodium Chloride) 50 mls @ 100 mls/hr IV Q24H [facility] Stop: 10/18/19 22:01 Last Infusion: 10/11/19 21:46 Dose: Infused Documented by: Azithromycin 500 mg/ Dextrose 255 mls @ 250 mls/hr IV Q24H [facility] Stop: 10/16/19 22:01 Last Infusion: 10/11/19 23:03 Dose: Infused Documented by: Sodium Chloride () 250 mls @ 15 mls/hr IV .[id number] PRN PRN Reason: Saline Flush Sodium Chloride () 250 mls @ 15 mls/hr IV .[id number] PRN PRN Reason: Additional IVPB Infusion Dextrose (Dextrose 10%-Water) 250 mls @ 999 mls/hr IV .Q16M PRN; Protocol PRN Reason: HYPOGLYCEMIA Lorazepam (Ativan) 0.5 mg IV Q4H PRN PRN PRN Reason: agitation/anxiety with BIPAP Lorazepam (Ativan) 2 mg PO Q2H PRN PRN; Protocol PRN Reason: CIWA score > 8 but <15 Lorazepam (Ativan) 2 mg PO UD PRN; Protocol PRN Reason: CIWA score >/=15. Lorazepam (Ativan) 2 mg IV Q2H PRN PRN; Protocol PRN Reason: CIWA score > 8 but <15 Lorazepam (Ativan) 2 mg IV UD PRN; Protocol PRN Reason: CIWA score >/=15. Methylprednisolone (Solu-Medrol) 40 mg IV Q8 [facility] Last Admin: 10/12/19 05:25 Dose: 40 mg Documented by: Morphine Sulfate () 1 - 2 mg IV Q4H PRN PRN PRN Reason: Pain Score 1-10/10 Multivitamins/Minerals (Multivitamin With Minerals) [facility] Last Admin: 10/12/19 10:25 Dose: 1 tablet Documented by: Nicotine (Nicoderm Cq (Pbkc)) 21 mg TRANSDERM. DAILY PRN PRN Reason: Nicotine Craving Nitroglycerin (Nitrostat) 0.4 mg SUBLINGUAL Q5M PRN PRN Reason: CARDIAC/CHEST PAIN Ondansetron HCl (Zofran) 4 mg IV Q8H PRN PRN PRN Reason: NAUSEA/VOMITING Last Admin: 10/12/19 08:27 Dose: 4 mg Documented by: Rasagiline (Azilect) 1 mg PO DAILY [facility] Last Admin: 10/12/19 06:06 Dose: 1 mg Documented by: Sodium Chloride () 10 - 40 ml IV UD PRN PRN Reason: SALINE FLUSH Last Admin: 10/12/19 08:26 Dose: 10 ml Documented by: Temazepam (Restoril) 15 mg PO QHS PRN PRN PRN Reason: INSOMNIA Thiamine HCl (Vitamin B1) [facility] Stop: 10/13/19 17:01 Last Admin: 10/12/19 10:25 Dose: 100 mg Documented by: Throat Lozenges (Cepacol Sore Throat Lozenge) 1 lozenge MUCOUS MEM Q2H PRN PRN PRN Reason: Sore throat or cough STROKE Vital Signs/Narrative: Vital Signs Temp Pulse Resp BP Pulse Ox 10/12/19 08:11 88 20 H 96 10/12/19 08:00 97.8 F 86 17 155/93 H 96 10/12/19 07:31 86 Medical Necessity - Tobacco Use Smoking Status: Current every day smoker Tobacco Use: Cigarettes Assessment/Plan All Active Problems Sepsis (Acute) Pneumonia (Acute) Viral syndrome (Acute) Hyponatremia (Acute) Reactive airway disease (Acute) Right lower lobe pneumonia (Acute) Sepsis (Acute) Hyponatremia (Acute) Hypochloremia (Acute) Patient is a 54-year-old gentleman admitted with shortness of breath cough and fever. Chest x-ray obtained on admission was consistent with developing pneumonia involving the right lower lobe. An assessment of acute hypoxic respiratory failure as well as sepsis secondary to pneumonia made admitted to monitored bed for further management. Patient was also found to be hyponatremic on admission. Subsequent acute respiratory viral panel sent came back positive for RSV 1. Acute hypoxic respiratory failure ~Secondary to RSV bronchitis with superimposed pneumonia management as discussed below ~10/12/2019:Seen still remains on oxygen. Still has a productive cough he did request possible discharge home plan is for patient to undergo 6 minutes walk if he requires oxygen will keep him an additional day if not patient will be discharged. 2. Sepsis ~ secondary to RSV bronchitis with superimposed pneumonia management as discussed belowto pneumonia 3. Pneumonia ~RSV viral pneumonia with suspected superimposed active cocci pneumonia. Blood and sputum cultures sent. Patient placed on Rocephin and Zithromax and placed on oxygen titrated to keep also is greater than 90 patient still requires supplemental oxygen 4. Acute respiratory alkalosis ?Patient PH on his ABG was 7.59 with PCO2 of 18.2. Management is by treating the underlying condition that is his RSV bronchitis with superimposed pneumonia 5. Acute hyponatremia ?Hypovolemic hyponatremia managed with IV fluids with subsequent monitoring of electrolyte 6. Parkinson's disease Patient is on Sinemet as well as Rasagiline (Azilect); did continue 7. Previous history of TIA ?Patient currently on aspirin did continue 8. Tobacco dependence ~counseled on cessation, offered nicotine patch for tobacco cravings 9. Neck alcohol abuse With previous withdrawal ; Patient was placed on DT precautions with lorazepam. 10. DVT prophylaxis ?Lovenox Code Visit Inpatient E&M: 14655 [facility] Hosp L2
--- NOTE | 2019-10-12 12:45 | NURSING ---
LATE NOTE, AM MEDS WERE GIVEN LATE D/T N/V THIS AM
--- NOTE | 2019-10-12 15:21 | DCINST_ITS ---
- Discharge Diagnoses Current Active Problems: Current Active and Chronic Problems Sepsis (Acute) Pneumonia (Acute) Viral syndrome (Acute) Hyponatremia (Acute) Reactive airway disease (Acute) Parkinsons disease (Chronic) History of TIA (transient ischemic attack) (Chronic) HTN (hypertension) (Chronic) Tobacco use (Chronic) ETOH abuse (Chronic) Right lower lobe pneumonia (Acute) Sepsis (Acute) Hyponatremia (Acute) Hypochloremia (Acute) You will use the following diet at home:: No restrictions Your food should be the consistency of: Regular Discharge Activity: May not drive while taking narcotic pain medications. Allergies/Adverse Reactions: Allergies SSRI Adverse Reaction (Uncoded 10/10/19 20:26) Other MAKES ME WANT TO KILL PEOPLE Medications to take at Discharge Carbidopa/Levodopa 50/200 [Sinemet CR 50/200] 1 tablet PO TIDAC 11/24/16 Rasagiline Mesylate [Azilect] 1 mg PO DAILY 11/24/16 Amlodipine [Norvasc] 5 mg PO DAILY #30 tablet 11/25/16 Aspirin [Aspirin, Baby] 81 mg PO DAILY@0800 #30 tab.chew 11/25/16 Albuterol Sulfate [Proventil Hfa] 6.7 gm IH Q2H PRN PRN #1 hfa.aer.ad 09/16/19 Cefdinir 300 mg PO BID #14 cap 10/12/19 Prednisone 20 mg PO BID #10 tab 10/12/19 The following prescriptions were given: Cefdinir 300 mg PO BID #14 cap Transmission Status: Received by [address] Prednisone 20 mg PO BID #10 tab Transmission Status: Received by [address] Primary Care Physician: Joao Perry MD [Primary Care Provider] - Please follow up with your Primary Care Physician in: in 5-7 days Test Results: Test results from this visit will be discussed in further detail at your follow- up appointment, if applicable. Proposed Discharge Date: 10/12/19
--- NOTE | 2019-10-12 15:41 | DS.PCM_ITS ---
Discharge Date and Diagnosis - Problem List Patient Problems: Active and Suspected Problems Sepsis (Acute) Pneumonia (Acute) Viral syndrome (Acute) Hyponatremia (Acute) Reactive airway disease (Acute) Right lower lobe pneumonia (Acute) Sepsis (Acute) Hyponatremia (Acute) Hypochloremia (Acute) Date of Admission: 10/10/19 Date of Discharge: 10/12/19 - Primary Discharge Diagnosis Active and Suspected Problems Sepsis (Acute) Pneumonia (Acute) Viral syndrome (Acute) Hyponatremia (Acute) Reactive airway disease (Acute) Right lower lobe pneumonia (Acute) Sepsis (Acute) Hyponatremia (Acute) Hypochloremia (Acute) - Secondary Discharge Diagnosis Chronic Problems Parkinsons disease (Chronic) History of TIA (transient ischemic attack) (Chronic) HTN (hypertension) (Chronic) Tobacco use (Chronic) ETOH abuse (Chronic) Hospital Course and Treatment Imaging Results: Clinical Impression(s) from Imaging Studies Chest X-Ray 10/10/19 17:09 IMPRESSION: 1. Developing right lower lobe pneumonia. Electronically Signed: Tesfaye Hsu MD (Brooks) at 17:22 EST , Service support , Summary of Care Provided: Patient is a 54-year-old gentleman admitted with shortness of breath cough and fever. Chest x-ray obtained on admission was consistent with developing pneumonia involving the right lower lobe. An assessment of acute hypoxic respiratory failure as well as sepsis secondary to pneumonia made admitted to monitored bed for further management. Patient was also found to be hyponatremic on admission. Subsequent acute respiratory viral panel sent came back positive for RSV 1. Acute hypoxic respiratory failure ~Secondary to RSV bronchitis with superimposed pneumonia management as discussed below ~10/12/2019:Seen still remains on oxygen.. Patient was weaned off oxygen and subsequently discharged home. Hhe underwent a 6-minute walk and his oxygen saturation did not drop below 88. 2. Sepsis ~ secondary to RSV bronchitis with superimposed pneumonia management as discussed below to pneumonia 3. Pneumonia ~RSV viral pneumonia with suspected superimposed active cocci pneumonia. Blood and sputum cultures sent. Patient placed on Rocephin and Zithromax and placed on oxygen titrated to keep also is greater than 90 patient still requires supplemental oxygen 4. Acute respiratory alkalosis ?Patient PH on his ABG was 7.59 with PCO2 of 18.2. Management is by treating the underlying condition that is his RSV bronchitis with superimposed pneumonia 5. Acute hyponatremia ?Hypovolemic hyponatremia managed with IV fluids with subsequent monitoring of electrolyte 6. Parkinson's disease Patient is on Sinemet as well as Rasagiline (Azilect); did continue 7. Previous history of TIA ?Patient currently on aspirin did continue 8. Tobacco dependence ~counseled on cessation, offered nicotine patch for tobacco cravings 9. Chronic alcohol With previous withdrawal ; Patient was placed on DT precautions with lorazepam. 10. DVT prophylaxis ?Lovenox Patient Problems: Active and Suspected Problems Sepsis (Acute) Pneumonia (Acute) Viral syndrome (Acute) Hyponatremia (Acute) Reactive airway disease (Acute) Right lower lobe pneumonia (Acute) Sepsis (Acute) Hyponatremia (Acute) Hypochloremia (Acute) Objective: GENERAL: cooperative HEENT: Atraumatic; EYES; Anicteric, Normal Conjunctiva NECK; supple, normal thyroid, RESPIRATORY: Diminished to auscultation CARDIOVASCULAR: Regular S1 S2, GI: soft, normoactive bowel sounds, : No Renal angle tenderness; EXTREMITIES: No edema, no clubbing, MUSCULOSKELETAL: no muscle waisting NEURO: Awake; no lateralizing signs. SKIN: No Rash PSYCH; Flat affect - Physical Exam Vitals/I&O's: Vital Signs Temp Pulse Resp BP Pulse Ox 98.2 F 94 18 147/82 H 94 10/12/19 13:15 10/12/19 13:15 10/12/19 13:15 10/12/19 13:15 10/12/19 13:15 Oxygen Flow Rate (L/min) 2 Oxygen Delivery Method Room Air Weight: 69.218 kg Body Mass Index (BMI) 24.6 Finger Stick Blood Glucose 92 Intake and Output for Last 24 Hours 10/10/19 10/11/19 10/12/19 23:59 23:59 23:59 Intake Total 1796.5 / 1796.5 6610.83 / 6610.83 2677.50 / 2677.50 Output Total 650 / 650 3050 / 3050 2100 / 2100 Balance 1146.5 / 1146.5 3560.83 / 3560.83 577.50 / 577.50 Microbiology Past 72 Hours 10/11/19 10:20 Sputum, Expectorated/Coughed Gram Stain - Final 01/02/20 10:20 Sputum, Expectorated/Coughed Respiratory Culture - Preliminary Appears to be normal respiratory aftab. Further studies to follow. 10/11/19 21:05 Stool C. difficile DNA Amplification - Final 10/10/19 21:22 Mucosa - Nose Respiratory Panel (PCR) - Final RSV A 10/10/19 21:30 Urine, Clean Catch Legionella Antigen - Final 10/10/19 21:30 Urine, Clean Catch Streptococcus pneumoniae Antigen (M - Final 10/10/19 16:55 Mucosa - Nasopharyngeal Influenza Types A,B Direct FA (FELIPE) - Final Laboratory Results 10/12/19 06:28: WBC 13.5 H, RBC 4.02 L, Hgb 13.4, Hct 38.8 L, MCV 96.5 H, MCH 33.3 H, MCHC 34.5, RDW Std Deviation 46.2 H, RDW Coeff of Michelet 12.9, Plt Count 196, MPV 9.4, Immature Gran % (Auto) 2.200 H, Neut % (Auto) 81.1 H, Lymph % (Auto) 7.7 L, [place] % (Auto) 8.5, Eos % (Auto) 0.4, Baso % (Auto) 0.1, Absolute Neuts (auto) 10.9 H, Absolute Lymphs (auto) 1.04, Nucleated RBC % 0 10/12/19 06:28: Sodium 138, Potassium 3.4 L, Chloride 107, Carbon Dioxide 25.0, Anion Gap 6, BUN 4 L, Creatinine 0.39 L, Estim Creat Clear Calc 199.94, Est GFR (MDRD) Af Amer 299, Est GFR (MDRD) Non-Af 247, BUN/Creatinine Ratio 10.3, Glucose 154 H, Calcium 8.4 L, Magnesium 2.3 Current Medications Acetaminophen (Tylenol) 650 mg PO Q6H PRN PRN PRN Reason: Non-cardiac pain (4-10/10) Hydrocodone Bitart/Acetaminophen ([place] 5mg-325mg) 1 - 2 tablet PO Q4H PRN PRN PRN Reason: Pain Score 4-10/10 Last Admin: 10/12/19 01:15 Dose: 1 tablet Documented by: Al Hydroxide/Mg Hydroxide (Mylanta Ii) 15 - 30 ml PO Q4H PRN PRN PRN Reason: INDIGESTION Albuterol Sulfate (Ventolin Aerosols) 2.5 mg INHALATION Q2H PRN PRN PRN Reason: dyspnea, wheezing Albuterol/Ipratropium (Duoneb) 3 ml INHALATION Q4HWA.RT [facility] Last Admin: 10/12/19 15:15 Dose: Not Given Documented by: Amlodipine Besylate (Norvasc) 5 mg PO 0700 [facility] Aspirin (Aspirin, Baby) 81 mg PO DAILY@0800 [facility] Last Admin: 10/12/19 10:25 Dose: 81 mg Documented by: Carbidopa/Levodopa (Sinemet Cr) 1 tablet PO 0700,1600,2200 [facility] Enoxaparin Sodium (Lovenox) 40 mg SC DAILY [facility] Last Admin: 10/12/19 10:25 Dose: 40 mg Documented by: Folic Acid (Folic Acid) 1 mg PO DAILY@0800 [facility] Stop: 10/13/19 08:01 Last Admin: 10/12/19 10:25 Dose: 1 mg Documented by: Glucagon () 1 mg IM .X1 PRN PRN Reason: Hypoglycemia Hydralazine HCl (Apresoline Iv) 10 mg IV Q4H PRN PRN PRN Reason: SBP > 160 Sodium Chloride () 1,000 mls @ 125 mls/hr IV .Q8H [facility] Last Infusion: 10/12/19 14:26 Dose: Infused Documented by: Ceftriaxone Sodium 2 gm/ (Sodium Chloride) 50 mls @ 100 mls/hr IV Q24H [facility] Stop: 10/18/19 22:01 Last Infusion: 10/11/19 21:46 Dose: Infused Documented by: Azithromycin 500 mg/ Dextrose 255 mls @ 250 mls/hr IV Q24H [facility] Stop: 10/16/19 22:01 Last Infusion: 10/11/19 23:03 Dose: Infused Documented by: Sodium Chloride () 250 mls @ 15 mls/hr IV .[id number] PRN PRN Reason: Saline Flush Sodium Chloride () 250 mls @ 15 mls/hr IV .[id number] PRN PRN Reason: Additional IVPB Infusion Dextrose (Dextrose 10%-Water) 250 mls @ 999 mls/hr IV .Q16M PRN; Protocol PRN Reason: HYPOGLYCEMIA Lorazepam (Ativan) 0.5 mg IV Q4H PRN PRN PRN Reason: agitation/anxiety with BIPAP Lorazepam (Ativan) 2 mg PO Q2H PRN PRN; Protocol PRN Reason: CIWA score > 8 but <15 Lorazepam (Ativan) 2 mg PO UD PRN; Protocol PRN Reason: CIWA score >/=15. Lorazepam (Ativan) 2 mg IV Q2H PRN PRN; Protocol PRN Reason: CIWA score > 8 but <15 Lorazepam (Ativan) 2 mg IV UD PRN; Protocol PRN Reason: CIWA score >/=15. Methylprednisolone (Solu-Medrol) 40 mg IV Q8 [facility] Last Admin: 10/12/19 13:08 Dose: 40 mg Documented by: Morphine Sulfate () 1 - 2 mg IV Q4H PRN PRN PRN Reason: Pain Score 1-10/10 [facility]ivitamins/Minerals ([facility]ivitamin With Minerals) [facility] Last Admin: 10/12/19 10:25 Dose: 1 tablet Documented by: Nicotine (Nicoderm Cq (Pbkc)) 21 mg TRANSDERM. DAILY PRN PRN Reason: Nicotine Craving Nitroglycerin (Nitrostat) 0.4 mg SUBLINGUAL Q5M PRN PRN Reason: CARDIAC/CHEST PAIN Ondansetron HCl (Zofran) 4 mg IV Q8H PRN PRN PRN Reason: NAUSEA/VOMITING Last Admin: 10/12/19 08:27 Dose: 4 mg Documented by: Rasagiline (Azilect) 1 mg PO 0700 [facility] Sodium Chloride () 10 - 40 ml IV UD PRN PRN Reason: SALINE FLUSH Last Admin: 10/12/19 08:26 Dose: 10 ml Documented by: Temazepam (Restoril) 15 mg PO QHS PRN PRN PRN Reason: INSOMNIA Thiamine HCl (Vitamin B1) [facility] Stop: 10/13/19 17:01 Last Admin: 10/12/19 10:25 Dose: 100 mg Documented by: Throat Lozenges (Cepacol Sore Throat Lozenge) 1 lozenge MUCOUS MEM Q2H PRN PRN PRN Reason: Sore throat or cough Discharge Diet: No Restrictions Discharge Activity: May not drive while taking narcotic pain medications. Home Medications: Medications to take at Discharge Carbidopa/Levodopa 50/200 [Sinemet CR 50/200] 1 tablet PO TIDAC 11/24/16 Rasagiline Mesylate [Azilect] 1 mg PO DAILY 11/24/16 Amlodipine [Norvasc] 5 mg PO DAILY #30 tablet 11/25/16 Aspirin [Aspirin, Baby] 81 mg PO DAILY@0800 #30 tab.chew 11/25/16 Albuterol Sulfate [Proventil Hfa] 6.7 gm IH Q2H PRN PRN #1 hfa.aer.ad 09/16/19 Cefdinir 300 mg PO BID #14 cap 10/12/19 Prednisone 20 mg PO BID #10 tab 10/12/19 Following Prescrptions Were Given to Patient: Cefdinir 300 mg PO BID #14 cap Transmission Status: Received by [address] Prednisone 20 mg PO BID #10 tab Transmission Status: Received by [facility] Primary Care Physician: Joao Perry MD [Primary Care Provider] - Please follow up with your Primary Care Physician in: in 5-7 days Disposition: Home Minutes spent on discharge:: 35 Patient Condition:: Stable Medical Necessity - Tobacco Use Smoking Status: Current every day smoker Tobacco Use: Cigarettes Meaningful Use Info Meaningful Use Diagnoses (Choose all that apply): None applicable Code Visit Inpatient E&M: 28066 Disch Hosp
== END 2019-10-12 16:20 | disposition home or self-care (01) | DRG 720 ==
LOC: ED 18:08 → PCU 20:30
PROVIDERS: Admitting Provider Family Medicine; Emergency Provider Emergency Medicine; Family Provider Family Medicine; PCP Family Medicine; Referring Provider Family Medicine; Visit Provider Internal Medicine
DX: A41.89 Other specified sepsis (principal); J20.5 Acute bronchitis due to respiratory syncytial virus; E87.1 Hypo-osmolality and hyponatremia; G20 Parkinson's disease; I10 Essential (primary) hypertension; F10.10 Alcohol abuse, uncomplicated; J96.01 Acute respiratory failure with hypoxia; J12.1 Respiratory syncytial virus pneumonia; E87.3 Alkalosis; F17.210 Nicotine dependence, cigarettes, uncomplicated; E87.8 Other disorders of electrolyte and fluid balance, not elsewhere classified; J45.909 Unspecified asthma, uncomplicated; Y90.0 Blood alcohol level of less than 20 mg/100 ml; Z86.73 Personal history of transient ischemic attack (TIA), and cerebral infarction without residual deficits
CPT/HCPCS: 36415; 36600; 71046; 80048; 80053; 80307; 80320; 82803; 83605; 83690; 83735; 84100; 85025; 87040; 87070; 87205; 87449; 87493; 87633; 87804; 94640; 97162; 97166; 97530; 97802; 99251; 99284; 99406; J7030; J7050; A4216; G0463; G0480; J0696; J2405

== ENCOUNTER 2019-12-07 13:46 | Emergency (ER) | payer MEDICAID, SELFPAY ==
[2019-10-10 20:10] VITALS: BMI 24.6
[2019-12-07 13:47] VITALS: BP 134/104; PULSE 114; RESP 26; TEMP 36.6; O2SAT 100; BMI 24.7
--- NOTE | 2019-12-07 13:59 | CT_ITS ---
STUDY: CT BRAIN WITHOUT CONTRAST REASON FOR EXAM: Male, 54 years old. FALL AND HEADACHE. PARKINSON''S RADIATION DOSAGE (If Supplied By Facility): CTDIvol = ( 44.99 ) mGy, DLP = ( 829.85 ) mGycm COMPARISON: None. TECHNIQUE: A CT scan of the head was performed without IV contrast in the axial plane. Coronal and sagittal reconstruction images were also obtained. This exam was performed according to our departmental dose-optimization program, which includes automated exposure control, adjustment of the mA and/or kV according to patient size and/or use of iterative reconstruction technique. FINDINGS: The abhi, medulla, and cerebellum appear to be normal. The ventricles and sulci are normal in size and shape. The basal ganglia appear to be normal. The inner and outer tables of the skull are intact. The frontal, ethmoid, maxillary, and sphenoid sinuses are normal. The mastoid air cells are normal. CT/Brain/Head without Contrast IMPRESSION: Normal CT scan of the head. Electronically Signed: Addy Mcclure, at 15:15 EST Tel , Service support ,
--- NOTE | 2019-12-07 14:01 | ED.DCSUM_ITS ---
History of Present Illness Chief Complaint: General Illness Detail of Chief Complaint: Headache Informant: Patient Current Severity: Moderate Maximum Severity: Moderate Narrative: Patient presents with a severe headache that started around 3 AM this morning. He did fall on the ice last night and hit his forehead. He is a small healing laceration. Patient states around 3 AM he started noticing headache that is continued to worsen. Patient does have a history of Parkinson's. He states his anxiety is very high and he is due for a dose of his carbidopa. He reports having a TIA a couple years ago and at that time he had a severe headache along with left-sided weakness. Because of his headache today he was concerned he may be having another TIA. He denies having any focal weakness at this time. Patient has not taken anything for his headache. He is not on anticoagulants. - Past Medical History (1) Parkinsons disease Status: Chronic (2) History of TIA (transient ischemic attack) Status: Chronic (3) HTN (hypertension) Status: Chronic Past Medical History - Allergies and Home Meds Allergies/Adverse Reactions: Allergies SSRI Adverse Reaction (Uncoded 12/07/19 13:54) Other MAKES ME WANT TO KILL PEOPLE Primary Care Physician: Joao Perry MD [Primary Care Provider] - Doctors: Dr. Arriaga Prior records reviewed: Yes Surgical History: - - Left lower extremity surgery status post trauma, denies hardware. Lives: Spouse/ Significant Other Smoking Status: Current every day smoker Alcohol: Heavy - Family History Maternal Family History: Reports: Hypertension Paternal Family History: Reports: Hypertension Review of Systems General: Denies: Chills, Fever Eyes: Denies: Visual changes - bilaterally ENT: Denies: Bilateral ear pain Cardiovascular: Denies: Chest pain, Palpitations Respiratory: Denies: Dyspnea, Cough Gastrointestinal: Denies: Abdominal pain, Nausea, Vomiting, Diarrhea Musculoskeletal: Denies: Neck pain, Back pain Neurological: Reports: Headache. Denies: Parasthesia Allergy: Denies: Uticaria Physical Exam Vital Signs/Narrative: Vital Signs Temp Pulse Resp BP Pulse Ox 12/07/19 13:47 97.8 F 114 H 26 H 134/104 H 100 Inital Vital Signs reviewed: Yes General: Well nourished, Well developed Head: Normocephalic, - - Linear scab over the mid forehead. Eyes: Perrl ENT: Moist mucous membranes Neck: Supple Cardiovascular: Tachycardia Respiratory: No distress, CTA bilaterally Abdomen: Soft, Nontender Extremities: - - Extremities in constant state of motion. Strong pulses are noted. He does have good strength on testing. Skin: - - Forehead scab as noted above. Neurological: Alert, Oriented x3 Psychological: - - Anxious Diagnostic/Tx/Re-eval Impressions Brain CT 12/07/19 13:59 IMPRESSION: Normal CT scan of the head. Electronically Signed: Addy Mcclure, at 15:15 EST Tel , Service support , 12/07/19 13:59 Brain/Head without Contrast [CT] Stat 12/07/19 16:13 Hand Min 3 Views [RAD] Stat Laboratory Results 12/07/19 12/07/19 14:05 14:05 WBC 13.0 H RBC 4.90 Hgb 16.3 Hct 47.0 MCV 95.9 H MCH 33.3 H MCHC 34.7 RDW Std Deviation 47.7 H RDW Coeff of Michelet 13.4 Plt Count 321 MPV 8.9 Immature Gran % (Auto) 0.500 Neut % (Auto) 54.2 Lymph % (Auto) 29.5 [place] % (Auto) 10.8 H Eos % (Auto) 4.2 Baso % (Auto) 0.8 Absolute Neuts (auto) 7.1 Absolute Lymphs (auto) 3.84 Nucleated RBC % 0 Sodium 135 L Potassium 3.6 Chloride 101 Carbon Dioxide 21.0 Anion Gap 13 BUN 3 L Creatinine 0.76 Estim Creat Clear Calc 106.30 Est GFR (MDRD) Af Amer 138 Est GFR (MDRD) Non-Af 114 BUN/Creatinine Ratio 3.9 L Glucose 112 H Calcium 9.4 - Medical Decision Making Patient was given his normal dose of carbidopa/levodopa, a dose of Tylenol, and 0.5 mg of IV Ativan. On repeat evaluation he is resting much more comfortably. Headache is improved. Patient now states that he forgot to mention he injured his left thumb when he fell on the ice yesterday. He has pain at the interphalangeal joint. X-ray this will be obtained prior to discharge. Addendum: Left hand x-ray does reveal a small avulsion fracture at the IP joint. AlumaFoam splint is placed. Patient is noted Dr. Curry will follow up with him. ED Disposition - Plan for ED Patient: Disposition: Home or Assisted Living Diagnosis: Cephalgia, Avulsion fracture Instructions: HEADACHE, Unspecified, FRACTURE, Thumb Referrals: Joao Perry MD [Primary Care Provider] - Lamine Hernandez MD [STAFF PHYSICIAN] - 1 Week
[2019-12-07] MEDS: 0.9% Normal Saline 1,000 ML 150 ML IV (14:14)
[2019-12-07 14:16] LABS: Absolute Lymphocyte Count 3.84 X10^3/uL (0.83-4.51); Absolute Neutrophil Count 7.1 X10^3/uL (2.0-7.7); Basophil# 0.11 X10^3/uL; Basophil% 0.8 % (0-1); Eosinophil# 0.55 X10^3/uL; Eosinophils% 4.2 % (0-5); Hemoglobin 16.3 g/dL (13.0-16.5); Lymphocyte # 3.84 X10^3/ul (4.0); Lymphocyte % 29.5 % (19-41); Mean Corp Hgb Conc 34.7 g/dL (32-36); Mean Corpuscular Hgb 33.3 pg (27.0-32.0); Mean Corpuscular Volume 95.9 fL (80-94); Mean Platelet Vol. 8.9 fl (6.2-12.0); Monocyte# 1.41 X10^3/uL; Monocyte% 10.8 % (0-10); NRBC Flagged by Analyzer 0 % (0-5); Neutrophil # 7.05 X10^3/uL (2.7-7.7); Neutrophil % 54.2 % (47-70); Platelet Count 321 K/mm3 (150-450); RBC Distribution Width CV 13.4 % (11.6-14.6); RBC Distribution Width SD 47.7 fl (35.1-43.9)
[2019-12-07] MEDS: LORazepam 2 MG/ML Syringe 0.5 MG IV (14:16)
[2019-12-07] MEDS: Acetaminophen 500 MG Tablet 1000 MG PO (14:16)
[2019-12-07] MEDS: Ondansetron 4 MG/2 ML Vial IV (14:16)
[2019-12-07 14:21] VITALS: PULSE 106; RESP 20; O2SAT 99
[2019-12-07 14:27] LABS: Anion Gap 13 (5-15); BUN 3 mg/dL (7-18); BUN/Creat Ratio 3.9 RATIO (10-20); Calcium,Total 9.4 mg/dL (8.5-10.1); Chloride 101 mmol/L (98-107); Creatinine, Serum 0.76 mg/dL (0.70-1.30); EST Glomerular Filtration Rate 114 mL/min (>60); Est Glom Filt Rate - Afr Amer 138 mL/min (>60); Glucose 112 mg/dL (74-106); Potassium 3.6 mmol/L (3.5-5.1); Sodium Level 135 mmol/L (136-145)
[2019-12-07] MEDS: CARBIDOPA/LEVODOPA CR 50/200 Tablet PO (14:41)
[2019-12-07 16:08] VITALS: PULSE 110; RESP 15; O2SAT 94
--- NOTE | 2019-12-07 16:25 | RAD_ITS ---
STUDY: X-RAY - LEFT HAND REASON FOR EXAM: Male, 54 years old. Patient had a fall last night, left thumb pain TECHNIQUE: 3 view(s) of the hand. COMPARISON: None. FINDINGS: Normal radiocarpal articulation. Normal distal radioulnar joint. Normal visualized carpal bones. Normal carpal articulations Normal carpometacarpal articulation of the thumb. Normal second through fifth carpometacarpal joints. There is degenerative spurring of the first metacarpal head. Metacarpal bones are otherwise unremarkable. Normal metacarpophalangeal joint of the thumb. Normal interphalangeal joint of the thumb. Normal proximal and distal phalanges of the thumb. Normal metacarpophalangeal joints of the second through fifth fingers. Normal proximal and distal interphalangeal joints of the second through fifth fingers. Normal phalanges of the second through fifth fingers. The soft tissue structures are unremarkable. RAD/Hand Min 3 Views IMPRESSION: 1. No evidence of trauma. 2. Mild degenerative changes of the first metacarpal head. Electronically Signed: Sandra Chi MD at 16:40 EST Tel , Service support ,
[2019-12-07 16:43] VITALS: BP 130/72; PULSE 100; RESP 17; O2SAT 97
== END 2019-12-07 16:43 | disposition home or self-care (01) ==
PROVIDERS: Emergency Provider Emergency Medicine; PCP Family Medicine
DX: R51 Headache (principal); S62.502A Fracture of unspecified phalanx of left thumb, initial encounter for closed fracture; I10 Essential (primary) hypertension; G20 Parkinson's disease; F41.9 Anxiety disorder, unspecified; Z86.73 Personal history of transient ischemic attack (TIA), and cerebral infarction without residual deficits; F17.200 Nicotine dependence, unspecified, uncomplicated; Z79.899 Other long term (current) drug therapy; W18.30XA Fall on same level, unspecified, initial encounter; Y93.89 Activity, other specified; Y92.89 Other specified places as the place of occurrence of the external cause; Y99.8 Other external cause status
CPT/HCPCS: 70450; 73130; 80048; 85025; 96361; 96374; 96375; 99285; A4216; J2405

== ENCOUNTER 2021-02-19 12:00 | Outpatient (RCR) | payer MEDICARE, MEDICAID, SELFPAY ==
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
--- NOTE | 2021-04-21 17:44 | HP.PTDCNRP_ITS ---
WILMAR ALEX was seen in my office for initial evaluation on 01/29/21. The following Plan of Care was established for this patient: Initial Frequency: 2x /Week Initial Duration: 4-6 Weeks Patient/Client Instruction: Educate patient on: Condition For the Purpose of:: To improve gait and locomotor functions Therapeutic Exercise to Include: Strength training, Balance training, Flexibilty training, Gait and locomotor training For the Purpose of:: To improve nutrient delivery to tissue, To improve muscle performance and motor function, To improve ability to perform ADL's, To improve gait and locomotor functions This patient was last seen in our office 02/19/21. Pertinent comments regarding their Physical therapy will appear below: Pt seen two visits of POC with a coupe no shows. He neglected to attend any f urther visits. at this point, I will discontinue due to nonattendance as it has been over two months. At this point I will be discontinuing this patient from physical therapy. I would be happy to see this patient again in the future if found appropriate by the physician. Thank you! Nimesh Mcfarlane, DPT, OCS, CSCS
== END 2021-02-19 19:00 | disposition home or self-care (01) ==
LOC: PT 12:00
PROVIDERS: PCP Family Medicine; Referring Provider Nurse Practitioner Family; Visit Provider Nurse Practitioner Family
DX: G20 Parkinson's disease (principal)
CPT/HCPCS: 97110; 97162

== ENCOUNTER 2021-04-03 06:48 | Emergency (ER) | payer MEDICARE, MEDICAID, SELFPAY ==
[2021-04-03 06:50] VITALS: BP 138/80; PULSE 92; RESP 16; TEMP 36.4; O2SAT 94; BMI 23.3
--- NOTE | 2021-04-03 07:10 | EKG12_ITS ---
Test Reason : CP Blood Pressure : / mmHG Vent. Rate : 093 BPM Atrial Rate : 093 BPM P-R Int : 136 ms QRS Dur : 100 ms QT Int : 356 ms P-R-T Axes : 072 105 073 degrees QTc Int : 442 ms Normal sinus rhythm Rightward axis Possible Inferior infarct , age undetermined Abnormal ECG Confirmed by CARLYLE العراقي, MIS ([id number]), news copy editor ИРИНА LIZARRAGA ([id number]) on 04/07/2021 6:57:46 AM Referred By: GINNY Confirmed By:MIS TADEO MD
--- NOTE | 2021-04-03 07:11 | EDS_ITS ---
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 It is worse with coughing and any type of movement. He has not had this before. He cannot recall any injury or activity that would have injured his chest. He notes a chronic cough associated with his tobacco use. No change in exercise tolerance recently. No prior stress test or heart catheterization. He is treated for hypertension. He also has a history of TIA and Parkinson's. [facility] Medical History (Updated 04/03/21 @ 07:[address] Miguel Montalvo DO) HTN (hypertension) Parkinson disease TIA (transient ischemic attack) Home Medications carbidopa-levodopa 1 tab PO Q8 11/24/16 [History Last Taken 10/10/19] rasagiline 1 mg PO DAILY 11/24/16 [History Last Taken 10/10/19] amlodipine 5 mg PO DAILY #30 tablet 11/25/16 [Rx Last Taken 10/10/19] aspirin 81 mg PO DAILY@0800 #30 tab.chew 11/25/16 [Rx Last Taken 10/10/19] istradefylline [Nourianz] 20 mg PO DAILY 04/03/21 [History Last Taken Unknown] Allergy/AdvReac Type Severity Reaction Status Date / Time SSRI AdvReac Other Uncoded 04/03/21 06:49 Surgical History (Updated 04/03/21 @ 07:[address] Miguel Montalvo DO) H/O knee surgery Social History (Updated 04/03/21 @ 07:[address] Miguel Montalvo DO) Smoking Status: Current every day smoker tobacco type: cigarettes substance use type: does not use ROS ROS ED Constitutional Constitutional ED: Denies chills or weight loss Eyes Eyes: Denies change in vision or diplopia ENT ENT ED: Denies ear pain, rhinorrhea or sore throat Cardiovascular Cardiovascular: Reports chest pain; Denies orthopnea, palpitations or racing heartbeat Respiratory/Chest Respiratory/Chest: Reports cough; Denies dyspnea or orthopnea Gastrointestinal Gastrointestinal: Denies abdominal pain, diarrhea, nausea or vomiting Genitourinary Genitourinary ED: Denies dysuria, hematuria or urinary frequency Musculoskeletal Musculoskeletal: Denies arthralgias or myalgias Integumentary Denies abscess or rash Neurologic Neurologic: Denies headache(s) or weakness Psychiatric Psychiatric: Denies anxiety, depression, suicidal ideation or suicidal thoughts Endocrine Endocrinology: Denies polydipsia, polyphagia or polyuria Allergic/Immunologic Allergic/Immunologic ED: Denies mouth swelling, tongue swelling or urticaria EXAM Physical Exam Const Vital Signs: 04/03/21 06:50 Temperature 97.5 F L Temperature Source Temporal Pulse Rate 92 Respiratory Rate 16 Respiratory Effort Normal Blood Pressure 138/80 H Blood Pressure Mean 99 Pulse Ox 94 Positive well nourished and well developed General Appearance ED: well developed HEENT Reports normocephalic, head/scalp atraumatic and moist mucous membranes Eyes PERRL and EOMs intact bilaterally Neck no lymphadenopathy, supple and no JVD Chest Wall Chest Narrative: Tenderness to palpation just inferior to the right breast along his rib with associated tenderness posteriorly of the eighth rib. Chest: tenderness Resp normal respiratory effort and clear to auscultation bilaterally Effort and Inspection: pain with movement Cardio regular rate, regular rhythm and no murmurs GI normal to inspection, nondistended, normoactive bowel sounds and non-tender Palpation: soft Back/Spine no CVA tenderness and normal ROM Extremity normal to inspection General Extremety ED: Negative for edema General Extremity: Negative for edema Neuro oriented x3 and CN's II-XII intact bilaterally Sensorium / Orientation: alert Motor Exam: strength 5/5 throughout Psych mental status grossly normal Mood & Affect: Negative for depressed or tearful Skin no rashes or lesions noted and no wounds Heart Score History: Slightly/Non-Suspicious ECG: Normal Age: >45 - <65 years Risk Factors: 1 or 2 Risk Factors Troponin: </= Normal Limit Score: 2 MDM MDM MDM Narrative Medical decision making narrative: My interpretation of the chest x-ray is no acute process. Patient's initial troponin is negative. He has had symptoms for greater than 3 hours. His EKG is a normal sinus rhythm. His pain is reproducible with movement and touch. At this point patient can be discharged home I believe this to be more musculoskeletal in nature. Lab Data Labs: Laboratory Results - last 24 hr 04/03/21 04/03/21 06:55 06:55 WBC 7.5 RBC 4.49 L Hgb 15.0 Hct 43.3 MCV 96.4 H MCH 33.4 H MCHC 34.6 RDW Std Deviation 45.5 H RDW Coeff of Michelet 12.7 Plt Count 255 MPV 9.1 Immature Gran % (Auto) 0.400 Neut % (Auto) 44.0 L Lymph % (Auto) 32.0 Dupage % (Auto) 15.4 H Eos % (Auto) 7.0 H Baso % (Auto) 1.2 H Absolute Neuts (auto) 3.3 Absolute Lymphs (auto) 2.41 Nucleated RBC % 0 Sodium 133 L Potassium 3.4 L Chloride 99 Carbon Dioxide 24.0 Anion Gap 10 BUN 3 L Creatinine 0.60 L Estim Creat Clear Calc 128.49 Est GFR (MDRD) Af Amer 181 Est GFR (MDRD) Non-Af 150 BUN/Creatinine Ratio 5.0 L Glucose 109 H Calcium 8.5 Troponin I High Sens 6.4 Radiography Diagnostic Testing: Radiology Impression Chest X-Ray 04/03/21 07:23 IMPRESSION: Degenerative changes, as described above. No demonstrated acute cardiopulmonary process. Electronically Signed: Radha Thompson MD at 7:49 EDT Tel , Service support , EKG Initial EKG: Attestation: I personally reviewed and interpreted this EKG as follows: Comments: EKG demonstrates a normal sinus rhythm at a rate of 93. No concerning features of ACS or ectopy noted. Discharge Plan Triage Chief Complaint: Chest Pain ED Provider: Miguel Montalvo Dx/Rx/DC Orders Clinical Impression: Acute chest wall pain Instructions: ED Strain Chest Wall Prescriptions: No Action carbidopa-levodopa 1 TABLET tablet extended release 1 tab PO Q8 RF: 0 rasagiline 1 MG tablet 1 mg PO DAILY RF: 0 amlodipine 5 MG tablet 5 mg PO DAILY Qty: 30 RF: 0 aspirin 81 MG tablet,chewable 81 mg PO DAILY@0800 Qty: 30 RF: 0 Nourianz 20 mg tablet 20 mg PO DAILY RF: 0 Primary Care Provider: Joao Perry Referrals: Joao Perry MD [Primary Care Provider] - 3-5 Days if not improving Disposition Disposition: Home, Self Care
[2021-04-03] MEDS: Ketorolac 30 MG/ML Syringe IV (07:14)
[2021-04-03 07:18] LABS: Absolute Lymphocyte Count 2.41 X10^3/uL (0.83-4.51); Absolute Neutrophil Count 3.3 X10^3/uL (2.0-7.7); Basophil# 0.09 X10^3/uL; Basophil% 1.2 % (0-1); Eosinophil# 0.53 X10^3/uL; Hematocrit 43.3 % (40-54); Lymphocyte # 2.41 X10^3/ul (0.83-4.51); Mean Corp Hgb Conc 34.6 g/dL (32-36); Mean Corpuscular Hgb 33.4 pg (27.0-32.0); Mean Corpuscular Volume 96.4 fL (80-94); Mean Platelet Vol. 9.1 fl (6.2-12.0); Monocyte# 1.16 X10^3/uL; Monocyte% 15.4 % (0-10); NRBC Flagged by Analyzer 0 % (0-5); Neutrophil # 3.31 X10^3/uL (2.7-7.7); Platelet Count 255 K/mm3 (150-450); RBC Distribution Width CV 12.7 % (11.6-14.6); RBC Distribution Width SD 45.5 fl (35.1-43.9); Red Blood Count 4.49 M/mm3 (4.6-6.2); White Blood Count 7.5 K/mm3 (4.4-11.0)
--- NOTE | 2021-04-03 07:23 | RAD_ITS ---
STUDY: X-RAY CHEST REASON FOR EXAM: Male, 55 years old. Chest pain TECHNIQUE: PA and lateral views of the chest. COMPARISON: 10/10/2019 chest x-ray FINDINGS: The lungs are clear and expanded. There is no demonstrated pleural abnormality. Normal size heart. Normal mediastinum and raheel. Normal visualized pulmonary arteries. Normal visualized aortic arch and descending thoracic aorta. There are diffuse degenerative changes of the visualized thoracic spine. Normal visualized ribs, clavicles, and shoulders. There is no demonstrated abnormality of the visualized soft tissue structures of the upper abdomen. RAD/Chest 1 View (Portable) IMPRESSION: Degenerative changes, as described above. No demonstrated acute cardiopulmonary process. Electronically Signed: Radha Thompson MD at 7:49 EDT Tel , Service support ,
[2021-04-03 07:37] LABS: Anion Gap 10 (5-15); BUN 3 mg/dL (7-18); Calcium,Total 8.5 mg/dL (8.5-10.1); Chloride 99 mmol/L (98-107); EST Glomerular Filtration Rate 150 mL/min (>60); Est Glom Filt Rate - Afr Amer 181 mL/min (>60); Estimated Creatinine Clearance 128.49 ml/min; Glucose 109 mg/dL (74-106); Potassium 3.4 mmol/L (3.5-5.1); Sodium Level 133 mmol/L (136-145); Troponin-I HS 6.4 pg/mL (3.0-78.5)
[2021-04-03 08:10] VITALS: BP 117/74; PULSE 82; RESP 16; O2SAT 97
== END 2021-04-03 08:11 | disposition home or self-care (01) ==
PROVIDERS: Emergency Provider Emergency Medicine; PCP Family Medicine
DX: R07.89 Other chest pain (principal); I10 Essential (primary) hypertension; G20 Parkinson's disease; F17.210 Nicotine dependence, cigarettes, uncomplicated; Z86.73 Personal history of transient ischemic attack (TIA), and cerebral infarction without residual deficits; Z79.899 Other long term (current) drug therapy
CPT/HCPCS: 71045; 80048; 84484; 85025; 93005; 96374; 99284; A4216